=== PATIENT | male | born 1965 | race Caucasian/White ===

== ENCOUNTER 2016-11-03 13:23 | Inpatient (IN) | payer MEDICARE ==
[~2016-11-03] VITALS: Ht 180.3 cm; Wt 85.2 kg
[~2016-11-03 13:23] MED LIST: BENZ1TAB PO; CALTTAB2 PO; DEPA250T2 PO; FISH1000 PO; LANTUSP SQ; MAGNESIUM PO; NOVOLOGP2 SQ; PARO10S PO; PRIN10TA PO; RISP2TAB2 PO; SYNT137T PO; VITA400C28 PO
[2016-11-03 13:24] VITALS: BP 136/84; PULSE 96; RESP 20; TEMP 97.9; O2SAT 94
--- NOTE | 2016-11-03 13:47 | PD ---
Physical Exam Time Seen by Provider: 13:44 Narrative 51yo M, presents w/ mother, who states he had a CT scan this morning and doctor said there is some type of blockage. Minimal bowel movements. Denies fever, vomiting. Patient seen in triage. VS reviewed. Awaiting bed placement. Data Data Last Documented VS Vital Signs Date Time Temp Pulse Resp B/P Pulse Ox O2 Delivery O2 Flow Rate FiO2 11/03/16 13:24 97.9 96 20 136/84 94 Room Air MDM Supervised Visit with CATHI: Zahida Baird Nov 03, 2016 13:47
--- NOTE | 2016-11-03 14:23 | PD ---
HPI Chief Complaint: GI Complaint Time Seen by Provider: 14:00 Travel History International Travel<30 days: No Contact w/Intl Traveler<30days: No Traveled to known affect area: No History of Present Illness HPI This is a 51-year-old male with history of chronic constipation. He presents with his mother after being sent by his gastric urologist for abnormal CT results. Over the past few weeks the patient has been more constipated than usual. His abdomen is seemed more distended according to his mother as well. He had an outpatient CT scan of the abdomen today at [facility]. This was ordered by his solo truck driver Dr. Abad and he was sent here because of an abnormality. I discussed with Dr. Abad he reports that the imaging reveals a possible sigmoid volvulus. He would like a Gastrografin enema to be performed and he would like the patient to be admitted with surgery consultation as well as consultation himself. The patient is currently not experiencing any abdominal pain. He has had no nausea or vomiting, no recent dietary changes. His primary care physician is Dr. Lee. PFSH Past Medical History Cardiovascular Problems: Yes (htn) Cerebrovascular Accident: No (terrets) Diabetes: Yes Patient Takes Glucophage: No Hypertension: Yes Neurologic: Yes (TOURETTES) Social History Alcohol Use: No Tobacco Use: No (QUIT 8 MOS AGO) Substance Use: No Allergies-Medications (Allergen,Severity, Reaction): Coded Allergies: Chocolate (Verified Allergy, Intermediate, eyes swollen, 11/03/16) Sulfa (Verified Allergy, Intermediate, blister, 11/03/16) Reported Meds & Prescriptions Reported Meds & Active Scripts Active Reported Levothyroxine (Levothyroxine Sodium) 137 Mcg Tab 137 Mcg PO DAILY Lisinopril 10 Mg Tab 10 Mg PO DAILY Paxil (Paroxetine HCl) 30 Mg Tab 30 Mg PO DAILY Praluent Pen Inj Pack (Alirocumab Pen Inj Pack) 150 Mg/Ml Pfpen 150 Mg SQ Q14D Novolog Inj (Insulin Aspart) 1,000 Unit/10 Ml Vial 8 Units SQ DAILY Daily with Dinner Novolog Inj (Insulin Aspart) 1,000 Unit/10 Ml Vial 5 Units SQ BID Twice a day with breakfast and lunch Lantus Inj (Insulin Glargine) 100 Unit/Ml Inj 25 Units SQ HS Review of Systems Except as stated in HPI: all other systems reviewed are Neg Physical Exam Narrative GENERAL: Pleasant well-developed well-nourished male in no acute distress SKIN: Warm and dry. HEAD: Atraumatic. Normocephalic. EYES: Pupils equal and round. No scleral icterus. No injection or drainage. ENT: No nasal bleeding or discharge. Mucous membranes pink and moist. NECK: Trachea midline. No JVD. CARDIOVASCULAR: Regular rate and rhythm. No murmur appreciated. RESPIRATORY: No accessory muscle use. Clear to auscultation. Breath sounds equal bilaterally. GASTROINTESTINAL: Abdomen soft, somewhat distended, nontender. Diminished bowel sounds in all 4 quadrants. MUSCULOSKELETAL: No obvious deformities. No clubbing. No cyanosis. No edema. NEUROLOGICAL: Awake and alert. No obvious cranial nerve deficits. Motor grossly within normal limits. Normal speech. PSYCHIATRIC: Appropriate mood and affect; insight and judgment normal. Data Data Last Documented VS Vital Signs Date Time Temp Pulse Resp B/P Pulse Ox O2 Delivery O2 Flow Rate FiO2 11/03/16 13:56 18 11/03/16 13:24 97.9 96 136/84 94 Room Air Orders Complete Blood Count With Diff (11/03/16 14:19) Comprehensive Metabolic Panel (11/03/16 14:19) Lipase (11/03/16 14:19) Prothrombin Time / Inr (Pt) (11/03/16 14:19) Act Partial Throm Time (Ptt) (11/03/16 14:19) Gastrografin Enema (11/03/16 ) Iv Access Insert/Monitor (11/03/16 14:19) Abdomen, Flat & Upright (11/03/16 ) Admit To Inpatient (11/03/16 ) Code Status (11/03/16 15:13) Vital Signs (Adult) Q4H (11/03/16 15:13) Activity Oob With Assistance (11/03/16 15:13) Sodium Chloride 0.9% Flush (Ns Flush) (11/03/16 15:15) Sodium Chloride 0.9% Flush (Ns Flush) (11/03/16 21:00) Acetaminophen (Tylenol) (11/03/16 15:15) Ondansetron Inj (Zofran Inj) (11/03/16 15:15) Temazepam (Restoril) (11/03/16 15:15) Basic Metabolic Panel (Bmp) (11/04/16 06:00) Complete Blood Count With Diff (11/04/16 06:00) Chest, Single Ap (11/03/16 15:13) Electrocardiogram (11/03/16 15:13) Scd Bilateral/Knee High JOSE.BID (11/03/16 15:13) Naloxone Inj (Narcan Inj) (11/03/16 15:15) Magnesium Hydroxide Liq (Milk Of Magnesi (11/03/16 15:15) Inpatient Certification (11/03/16 ) Insulin Aspart Supplemtl Scale (Novolog (11/03/16 16:00) Clonidine (Catapres) (11/03/16 15:15) Enalaprilat Inj (Vasotec Inj) (11/03/16 15:15) Benztropine (Cogentin) (11/03/16 21:00) Lisinopril (Prinivil) (11/04/16 09:00) Divalprovania [address] Dr) (11/03/16 21:00) Admit Order (Ed Use Only) (11/03/16 15:25) Consult Gastroenterology (11/03/16 ) Luca Mich[address] Dr) (11/04/16 09:00) Labs Laboratory Tests Test 11/03/16 14:20 White Blood Count 4.7 TH/MM3 Red Blood Count 4.53 MIL/MM3 Hemoglobin 13.3 GM/DL Hematocrit 40.1 % Mean Corpuscular Volume 88.7 FL Mean Corpuscular Hemoglobin 29.5 PG Mean Corpuscular Hemoglobin 33.2 % Concent Red Cell Distribution Width 13.2 % Platelet Count 139 TH/MM3 Mean Platelet Volume 8.7 FL Neutrophils (%) (Auto) 49.1 % Lymphocytes (%) (Auto) 36.2 % Monocytes (%) (Auto) 10.3 % Eosinophils (%) (Auto) 4.1 % Basophils (%) (Auto) 0.3 % Neutrophils # (Auto) 2.3 TH/MM3 Lymphocytes # (Auto) 1.7 TH/MM3 Monocytes # (Auto) 0.5 TH/MM3 Eosinophils # (Auto) 0.2 TH/MM3 Basophils # (Auto) 0.0 TH/MM3 CBC Comment DIFF FINAL Differential Comment Prothrombin Time 12.0 SEC Prothromb Time International 1.1 RATIO Ratio Activated Partial 33.2 SEC Thromboplast Time Sodium Level 132 MEQ/L Potassium Level 4.1 MEQ/L Chloride Level 98 MEQ/L Carbon Dioxide Level 29.9 MEQ/L Anion Gap 4 MEQ/L Blood Urea Nitrogen 8 MG/DL Creatinine 0.82 MG/DL Estimat Glomerular Filtration 100 ML/MIN Rate Random Glucose 95 MG/DL Calcium Level 8.7 MG/DL Total Bilirubin 0.4 MG/DL Aspartate Amino Transf 20 U/L (AST/SGOT) Alanine Aminotransferase 28 U/L (ALT/SGPT) Alkaline Phosphatase 51 U/L Total Protein 7.4 GM/DL Albumin 3.6 GM/DL Lipase 74 U/L [facility] Medical Decision Making Medical Screen Exam Complete: Yes Emergency Medical Condition: Yes Medical Record Reviewed: Yes Differential Diagnosis Chronic idiopathic constipation, obstruction, fecal impaction, volvulus Narrative Course 51-year-old male with chronic constipation presents after having an outpatient CT of the abdomen and pelvis that revealed possible sigmoid volvulus. I discussed with solo truck driver Dr. Abad who recommends a Gastrografin enema, surgery consultation, consultation to himself, admission. The radiologist has requested a flat and upright x-ray prior to the Gastrografin enema being performed and therefore has been ordered. Initially I discussed with general surgeon Dr. Soto ordered because this is a [facility] patient I then discussed with Dr. Dejesus general surgeon salesperson household appliances for [facility]. He will be communicating with the radiologist and will be consult on the patient. Diagnosis Primary Impression: Volvulus Admitting Information Admitting Physician Requests: Admit Pedro Us Nov 03, 2016 14:23
[2016-11-03] MEDS ORDERED: TEMAZEPAM 15 MG CAP PO PRN (15:15)
[2016-11-03] MEDS ORDERED: SODIUM CHLORIDE 0.9% FLUSH 10 ML FLUSH IV FLUSH PRN (15:15)
[2016-11-03] MEDS ORDERED: NALOXONE HCL 0.4 MG/ML AMP IV PRN (15:15)
[2016-11-03] MEDS ORDERED: MAGNESIUM HYDROXIDE SUSP 30 ML CUP PO PRN (15:15)
[2016-11-03] MEDS ORDERED: ENALAPRILAT 1.25 MG/ML VIAL IV PRN (15:15)
[2016-11-03] MEDS ORDERED: ONDANSETRON HCL 4 MG/2 ML VIAL IVP PRN (15:15)
[2016-11-03] MEDS ORDERED: ACETAMINOPHEN 325 MG TAB PO PRN (15:15)
[2016-11-03] MEDS ORDERED: cloNIDine HCL 0.2 MG TAB PO PRN (15:15)
--- NOTE | 2016-11-03 15:15 | RADRPT ---
EXAM DATE/TIME: 11/03/2016 15:00 [facility] COMPARISON: No previous studies available for comparison. EXTERNAL COMPARISON : [facility] Abdomen and Pelvis November 03, 2016 INDICATIONS : Abnormal bowel movements. MEDICAL HISTORY : None. SURGICAL HISTORY : None. ENCOUNTER: Initial ACUITY: 2 days PAIN SCORE: 0/10 LOCATION: Bilateral abdomen. FINDINGS: CT performed earlier today at [place] [facility] had demonstrated a distended loop of colon in the u pper central abdomen in a configuration suggestive of sigmoid volvulus. On the present KUB, there is a distended loop of bowel in the upper central abdomen measuring up to 14.6 cm; this corresponds to the gas distended sigmoid. There is also gas seen throughout loops of small and large bowel, similar to central office repairer supervisor image from prior CT. No cyst fractures are grossly intact.. CONCLUSION: Persistent dilated loop of colon in the upper abdomen suspicious for sigmoid volvulus. The appearanc e is unchanged from prior central office repairer supervisor image from CT earlier the same day. Jax Mcmahon MD on November 03, 2016 at 15:10 Board Certified Radiologist. This report was verified electronically.
[2016-11-03 15:30] LABS: APTT (PATIENT) 33.2 SEC (24.3-30.1); INTERNATIONAL NORMALIZED RATIO 1.1 RATIO
[2016-11-03 15:31] LABS: AUTOMATED NEUTROPHIL # 2.3 TH/MM3 (1.8-7.7); BASOPHIL % 0.3 % (0.0-2.0); EOSINOPHIL # 0.2 TH/MM3 (0-0.4); EOSINOPHIL % 4.1 % (0.0-4.0); HEMATOCRIT 40.1 % (39.0-51.0); HEMO FLAGS DIFF FINAL; LYMPH % 36.2 % (9.0-44.0); LYMPHOCYTE # 1.7 TH/MM3 (1.0-4.8); MEAN CELL VOLUME 88.7 FL (80.0-100.0); MEAN CORPUSCULAR HEMOGLOBIN 29.5 PG (27.0-34.0); MEAN CORPUSCULAR HGB CONC 33.2 % (32.0-36.0); MONO % 10.3 % (0.0-8.0); NEUT % 49.1 % (16.0-70.0); PLATELET COUNT 139 TH/MM3 (150-450); RED BLOOD COUNT 4.53 MIL/MM3 (4.50-5.90); RED CELL DISTRIBUTION WIDTH 13.2 % (11.6-17.2); WHITE BLOOD COUNT 4.7 TH/MM3 (4.0-11.0)
[2016-11-03 15:39] LABS: ALT (GPT) 28 U/L (12-78); ANION GAP 4 MEQ/L (5-15); AST (GOT) 20 U/L (15-37); BICARBONATE 29.9 MEQ/L (21.0-32.0); BLOOD UREA NITROGEN 8 MG/DL (7-18); CHLORIDE 98 MEQ/L (98-107); GLOMERULAR FILTRATION RATE 100 ML/MIN (>89); POTASSIUM 4.1 MEQ/L (3.5-5.1); SODIUM (NA) 132 MEQ/L (136-145)
[2016-11-03 15:40] LABS: ALKALINE PHOSPHATASE 51 U/L (45-117); TOTAL BILIRUBIN ADULT 0.4 MG/DL (0.2-1.0)
[2016-11-03] MEDS: INSULIN ASPART SUPPLEMENTAL SCALE SQ SCH ×2 (16:00→20:36)
--- NOTE | 2016-11-03 16:02 | HHI.HP ---
HPI Service [facility] Hospitalists Primary Care Physician Albert Lee MD Admission Diagnosis possible volvulus Chief Complaint: Abd bloating and constipation Travel History International Travel<30 Days: No Contact w/Intl Traveler <30 Da: No Traveled to Known Affected Are: No History of Present Illness Mr. Camara is a 51 y/o WM with type 1 diabetes mellitus, HTN, hyperlipidemia, chronic constipation, Schizophrenia, depression/anxiety, developmental delay, and Tourette's syndrome. He was sent to the ED on 11/03/[address] scan which was performed outpt which indicated a possible sigmoid volvulus. Pt has had issues with chronic constipation for quite some time. He was recently treated for SIBO initially with Flagyl and then with erythromycin. Pt had been started on Linzess and takes stool softeners daily, along with either MOM or Miralax daily. His mother states that the Linzess wasn't working well and had followed up in the office to see Dr. Abad and was started on Amitza recently. The pt had not had a BM for several days and was having more abd distension and bloating and was sent for a CT abd/pelvis. This revealed abnormally distended segment of sigmoid colon with a decompressed sigmoid colon and swirling of the adjacent sigmoid mesentery suspicious for some degree of sigmoid volvulus. Pts mother was called with results and instructed to go to the ED for further evaluation. Pt was getting his Gastrografin enema performed when I reported to the ED to see the pt. I spoke with the pts mother to obtain the history and his mother reports that the patient himself if really unable to provide much information. Review of Systems ROS Limitations: Other Past Family Social History Past Medical History Diabetes mellitus, type 1 Diabetic nephropathy HTN Hyperlipidemia GERD Schizophrenia Tourette's syndrome Recurrent major depression Developmental delay Chronic constipation Bacterial overgrowth syndrome Past Surgical History EGD/colonoscopy (11/06/2010) --> gastritis in the body and antrum, poor prep on the colonoscopy small internal hemorrhoids Rectal manometry 04/2016 Reported Medications -Lantus 30 Units SQ HS -Novolog (Insulin Aspart) 100 Units/Ml Inj 14 Units SQ AT DINNER -Novolog (Insulin Aspart) 100 Units/Ml Inj 5 Units SQ AT LUNCH -Novolog (Insulin Aspart) 100 Units/Ml Inj 7 SQ DAILY -Benztropine Mesylate 1 Mg PO BID -Paxil (Paroxetine HCl) 30 Mg PO DAILY -Prinivil 10 Mg PO DAILY -Synthroid 137 mcg PO DAILY --Magnesium 500 Mg PO BID --Depakote Delayed-Release 250 Mg Tabec 750 Mg PO in AM and 500Mg PO in PM --Risperdal 1.5 Mg PO BID Caltrate 600/Vitamin D 400 (Calcium/Vitamin D) 1 Tab Tab 1 Tab PO BID Fish Oil 1,000 Mg Cap 1,200 Mg PO DAILY Vitamin D (Cholecalciferol) 400 Unit Tab 2,000 Iu PO BID Allergies: Coded Allergies: Chocolate (Verified Allergy, Intermediate, eyes swollen, 11/03/16) Sulfa (Verified Allergy, Intermediate, blister, 11/03/16) Family History Noncontributory Social History No reported alcohol or illicit drug use Hx of tobacco use Pt is on disability Lives with his parents Never Pt enjoys bowling recreationally Physical Exam Vital Signs Vital Signs Date Time Temp Pulse Resp B/P Pulse Ox O2 Delivery O2 Flow Rate FiO2 11/03/16 13:56 18 11/03/16 13:24 97.9 96 20 136/84 94 Room Air Physical Exam Not performed at this time. Will re-evaluate when he returns from the Gastrografin enema Laboratory Laboratory Tests Test 11/03/16 14:20 White Blood Count 4.7 Red Blood Count 4.53 Hemoglobin 13.3 Hematocrit 40.1 Mean Corpuscular Volume 88.7 Mean Corpuscular Hemoglobin 29.5 Mean Corpuscular Hemoglobin 33.2 Concent Red Cell Distribution Width 13.2 Platelet Count 139 Mean Platelet Volume 8.7 Neutrophils (%) (Auto) 49.1 Lymphocytes (%) (Auto) 36.2 Monocytes (%) (Auto) 10.3 Eosinophils (%) (Auto) 4.1 Basophils (%) (Auto) 0.3 Neutrophils # (Auto) 2.3 Lymphocytes # (Auto) 1.7 Monocytes # (Auto) 0.5 Eosinophils # (Auto) 0.2 Basophils # (Auto) 0.0 CBC Comment DIFF FINAL Differential Comment Prothrombin Time 12.0 Prothromb Time International 1.1 Ratio Activated Partial 33.2 Thromboplast Time Sodium Level 132 Potassium Level 4.1 Chloride Level 98 Carbon Dioxide Level 29.9 Anion Gap 4 Blood Urea Nitrogen 8 Creatinine 0.82 Estimat Glomerular Filtration 100 Rate Random Glucose 95 Calcium Level 8.7 Total Bilirubin 0.4 Aspartate Amino Transf 20 (AST/SGOT) Alanine Aminotransferase 28 (ALT/SGPT) Alkaline Phosphatase 51 Total Protein 7.4 Albumin 3.6 Lipase 74 Result Diagram: 11/03/16 1420 11/03/16 1420 Imaging Last Impressions Abdomen X-Ray 11/03/16 0000 Signed Impressions: Service Date/Time: Thursday, November 03, 2016 15:00 - CONCLUSION: Persistent dilated loop of colon in the upper abdomen suspicious for sigmoid volvulus. The appearance is unchanged from prior forepart rounder image from CT earlier the same day. Jax Mcmahon MD Assessment and Plan Problem List: (1) Sigmoid volvulus Status: Acute Plan: - Pt is a 51 y/o WM with type 1 diabetes mellitus, HTN, hyperlipidemia, chronic constipation, SIBO, Schizophrenia, depression/anxiety, developmental delay, and Tourette's syndrome. - He was sent to the ED on 11/03/[address] scan which was performed outpt which indicated a possible sigmoid volvulus. - Pt has had issues with chronic constipation for quite some time. He was recently treated for SIBO initially with Flagyl and then with erythromycin. Pthas been on multiple laxative, and most recently has been on a regimen which included stool softeners daily, along with either MOM or Miralax daily, and Amitza which was just started about a week ago. The pt had not had a BM for several days and was having more abd distension and bloating and was sent for a CT abd/pelvis (11/03/16) --> abnormally distended segment of sigmoid colon with a decompressed sigmoid colon and swirling of the adjacent sigmoid mesentery suspicious for some degree of sigmoid volvulus. - Pt is currently being evaluation with Gastrografin enema - GI consulted - General Surgery consulted - Per conversation between Dr. Jimenez and Dr. Dejesus, who reviewed the GE images with surgery, the pt does not appear to be obstructed at this time and may have a slight sigmoid volvulus. - is recommending GI consultation and clean out for colonoscopy. - Pt may or may not need evaluation with CRS depending on how the case progresses. - GI to order prep and timing of colonoscopy per GI, this was discussed with the GI ENGINEERING AGENT, Shima Duff. - IVF - Clear liquid diet - Monitor labs - Further recommendations as the case develops - DVT prophylaxis (2) Chronic constipation Status: Chronic Plan: - See above. (3) Small intestinal bacterial overgrowth Status: Chronic Plan: - See above. (4) Type 1 diabetes mellitus Status: Chronic Plan: - Novolog SSI - Accu checks (5) HTN (hypertension) Status: Chronic Plan: - Home meds resumed (6) Tourette syndrome Status: Chronic Plan: - Home meds resumed (7) Schizophrenia Status: Chronic Plan: - Home meds resumed (8) Depression Status: Chronic Plan: - Home meds resumed Assessment and Plan Patient examined. Assessment and plan formulated with Amanda Leigh PA-C. I agree with the above. Physician Certification 2 Midnight Certification Type: Admission for Inpatient Services Order for Inpatient Services The services are ordered in accordance with Medicare regulations or non- Medicare payer requirements, as applicable. In the case of services not specified as inpatient-only, they are appropriately provided as inpatient services in accordance with the 2-midnight benchmark. Estimated LOS (days): 3 3 days is the estimated time the patient will need to remain in the hospital, assuming treatment plan goals are met and no additional complications. Post-Hospital Plan: Not yet determined Problem Qualifiers (1) Type 1 diabetes mellitus: Qualified Code: E10.8 - Type 1 diabetes mellitus with complication Amanda Leigh Nov 03, 2016 16:02 Mark Jimenez DO Nov 05, 2016 11:06
--- NOTE | 2016-11-03 16:03 | RADRPT ---
EXAM DATE/TIME: 11/03/2016 15:35 [facility] COMPARISON: No previous studies available for comparison. INDICATIONS : Cough. MEDICAL HISTORY : None. SURGICAL HISTORY : None. ENCOUNTER: Initial ACUITY: 1 day PAIN SCORE: 0/10 LOCATION: Bilateral chest FINDINGS: There are patchy areas of infiltrate in the right infrahilar region in the left lower lung without lo ss of delineation of either hemidiaphragm. Some air bronchograms are present in the area of infiltra te. The heart is normal size. CONCLUSION: Bilateral partially consolidative infiltrates in the lower lungs, left greater than right. Jax Mcmahon MD on November 03, 2016 at 16:00 Board Certified Radiologist. This report was verified electronically.
[2016-11-03] MEDS ORDERED: LANTUS2P SQ (16:43)
[2016-11-03] MEDS ORDERED: ALIR1INJ2 SQ (16:43)
[2016-11-03] MEDS ORDERED: PAXI30TA7 PO (16:43)
[2016-11-03] MEDS ORDERED: NOVOLOGP2 SQ ×2 (16:43)
[2016-11-03] MEDS ORDERED: LEVO137T2 PO (16:43)
[2016-11-03] MEDS ORDERED: LISI10TA3 PO (16:43)
[2016-11-03] MEDS ORDERED: GLUCAGON 1 MG/ML VIAL OTHER PRN (16:45)
[2016-11-03] MEDS ORDERED: DEXTROSE 50% IN WATER 50 ML VIAL(D50) IV PUSH PRN (16:45)
[2016-11-03] MEDS ORDERED: DIATRIZOATE MEGLUM/DIATRIZOATE SOD 120 ML BTL (for RAD DIAG) RECTAL ONE (17:00)
[2016-11-03 17:10] VITALS: BP 140/75; PULSE 82; RESP 19; O2SAT 98
--- NOTE | 2016-11-03 17:53 | RADRPT ---
EXAM DATE/TIME: 11/03/2016 16:22 [facility] COMPARISON: No previous studies available for comparison. EXTERNAL COMPARISON : [facility] & W/O CONTRAST November 03, 2016 INDICATIONS : Evaluate for obstruction, abnormal bowel movements. FLUORO TIME: 3.6 minutes IMAGE COUNT: 22 CONTRAST: 1. [facility] MEDICAL HISTORY : None. SURGICAL HISTORY : None. ENCOUNTER: Initial ACUITY: 2 days PAIN SCORE: 0/10 LOCATION: Bilateral abdomen. FINDINGS: Abdominal CT examination from earlier today performed in [facility] was reviewed. This demonstrates distended sigmoid colon with features consistent for sigmoid volvulus. Gastrografin enema exam is shahzad ng performed to evaluate for possible obstruction. Fluoroscopic evaluation confirms a massively dilated sigmoid colon. Under fluoroscopic guidance a Gas trografin enema was performed. Patient was asymptomatic throughout without any abdominal discomfort. Contrast does extend proximally into the descending colon with a relative transition point at the michela ction of the sigmoid and descending colon. One overhead imaging contrast extends to the transverse co mario. Post evacuation radiographs demonstrate contrast into the descending colon. CONCLUSION: Massively dilated sigmoid colon with the apparent transition point at the junction of the descending colon without evidence for obstruction. Findings are consistent with a nonobstructing sigmoid volvulu s. More rare conditions such as idiopathic sigmoid megacolon and unlikely adult Hirschsprung's may bryant ve similar appearance. Findings were personally discussed with Dr. Dejesus. Efrem Parra MD on November 03, 2016 at 17:22 Board Certified Radiologist. This report was verified electronically.
[2016-11-03 18:00] VITALS: BP 134/68; PULSE 81; RESP 12; TEMP 96.8; O2SAT 98
--- NOTE | 2016-11-03 18:01 | PD.CONS ---
HPI History of Present Illness This is a 51 year old male with hx Tourette's, SIBO, IDDM, chronic constipation who was referred to ER by Dr Abad after abnormal CT findings suggestive of sigmoid volvulus. Pt non contributory, hx obtained from EMR, pt's mother. He has had bloating, gas, worsening abd distention for years for which they have sought extensive GI w/u leading to recent CT scan. Also has chronic constipation refractory to bowel regimen including MOM, miralax, stool softeners. Did get some relief with linzess. Amitiza no help. Trial EES and flagyl unsuccessful in relieving distention. In last 2 months pt has had decreased caliber stool. NO complaints of n/v or abd pain. Pt's only complaint of pain is that his "butt hurts" after the gastrografin enema. Last colonoscopy 3y ago and polyps found. Last EGD 3y ago. Hx GERD. PFSH Past Medical History IDDM Tourettes chornic constipation SIBO Past Surgical History none Coded Allergies: Chocolate (Verified Allergy, Intermediate, eyes swollen, 11/03/16) Sulfa (Verified Allergy, Intermediate, blister, 11/03/16) Family History breast cancer heart disease Social History no ETOH or illicit drugs 30 pack years but unclear how much pt smokes currently Review of Systems Constitutional: DENIES: Fever Ears, nose, mouth, throat: DENIES: Hearing loss Respiratory: DENIES: Cough Gastrointestinal: COMPLAINS OF: Constipation, DENIES: Abdominal pain, Black stools, Bloody stools, Diarrhea, Nausea, Vomiting Musculoskeletal: DENIES: Joint Swelling Neurologic: DENIES: Headache GI Exam Vitals I&O Vital Signs Date Time Temp Pulse Resp B/P Pulse Ox O2 Delivery O2 Flow Rate FiO2 11/03/16 17:10 82 19 140/75 98 Room Air 11/03/16 13:56 18 11/03/16 13:24 97.9 96 20 136/84 94 Room Air Imaging Last Impressions Chest X-Ray 11/03/16 1513 Signed Impressions: Service Date/Time: Thursday, November 03, 2016 15:35 - CONCLUSION: Bilateral partially consolidative infiltrates in the lower lungs, left greater than right. Jax Mcmahon MD Abdomen X-Ray 11/03/16 0000 Signed Impressions: Service Date/Time: Thursday, November 03, 2016 15:00 - CONCLUSION: Persistent dilated loop of colon in the upper abdomen suspicious for sigmoid volvulus. The appearance is unchanged from prior tile designer image from CT earlier the same day. Jax Mcmahon MD Laboratory Test 11/03/16 14:20 White Blood Count 4.7 TH/MM3 Red Blood Count 4.53 MIL/MM3 Hemoglobin 13.3 GM/DL Hematocrit 40.1 % Mean Corpuscular Volume 88.7 FL Mean Corpuscular Hemoglobin 29.5 PG Mean Corpuscular Hemoglobin 33.2 % Concent Red Cell Distribution Width 13.2 % Platelet Count 139 TH/MM3 Mean Platelet Volume 8.7 FL Neutrophils (%) (Auto) 49.1 % Lymphocytes (%) (Auto) 36.2 % Monocytes (%) (Auto) 10.3 % Eosinophils (%) (Auto) 4.1 % Basophils (%) (Auto) 0.3 % Neutrophils # (Auto) 2.3 TH/MM3 Lymphocytes # (Auto) 1.7 TH/MM3 Monocytes # (Auto) 0.5 TH/MM3 Eosinophils # (Auto) 0.2 TH/MM3 Basophils # (Auto) 0.0 TH/MM3 CBC Comment DIFF FINAL Differential Comment Prothrombin Time 12.0 SEC Prothromb Time International 1.1 RATIO Ratio Activated Partial 33.2 SEC Thromboplast Time Sodium Level 132 MEQ/L Potassium Level 4.1 MEQ/L Chloride Level 98 MEQ/L Carbon Dioxide Level 29.9 MEQ/L Anion Gap 4 MEQ/L Blood Urea Nitrogen 8 MG/DL Creatinine 0.82 MG/DL Estimat Glomerular Filtration 100 ML/MIN Rate Random Glucose 95 MG/DL Calcium Level 8.7 MG/DL Total Bilirubin 0.4 MG/DL Aspartate Amino Transf 20 U/L (AST/SGOT) Alanine Aminotransferase 28 U/L (ALT/SGPT) Alkaline Phosphatase 51 U/L Total Protein 7.4 GM/DL Albumin 3.6 GM/DL Lipase 74 U/L Physical Examination HEENT: PERRL normocephalic; atraumatic; no jaundice. CHEST: CTA CARDIAC: RRR ABDOMEN: Soft, distended, nontender;, tympanitic, no hepatosplenomegaly; bowel sounds are present in all four quadrants. EXTREMITIES: No clubbing, cyanosis, or edema. SKIN: Normal; no rash; no jaundice. SENIOR DRUPAL DEVELOPER: alert. Assessment and Plan Plan ASSESSMENT - abnormal CT finding - per EMR, suggestive of sigmoid volvulus. hx worsening abd distention, constipation abd xray 11-03-16 --> Persistent dilated loop of colon in the upper abdomen suspicious for sigmoid volvulus. The appearance is unchanged from prior tile designer image from CT earlier the same day. gastrografin enema results pending - Chronic constipation - refractory to MOM, miralax, stool softeners. consider linzess, lactulose - decreased caliber stool - for last few months PLAN - await gastrofrafin enema - consider colonoscopy - clears for now - Further recommendations to follow THis pt seen by myself and DR Garcia and this note is written on his behalf Lilia Duff Nov 03, 2016 18:01
[2016-11-03 20:00] VITALS: BP 142/69; PULSE 79; RESP 20; TEMP 97.7; O2SAT 100
[2016-11-03] MEDS: DIVALPROEX DR 500 MG TABEC PO SCH (20:35)
[2016-11-03] MEDS: SODIUM CHLORIDE 0.9% FLUSH 10 ML FLUSH IV FLUSH SCH (20:36)
[2016-11-03] MEDS ORDERED: MAGNESIUM 200 MG PO SCH (21:00)
[2016-11-03] MEDS ORDERED: [UNRECOGNIZED DRUG - OTHER] PO SCH (21:00)
[2016-11-03] MEDS: BENZTROPINE MESYLATE 1 MG TAB PO SCH (21:46)
[2016-11-04] VITALS: BP 136/70; PULSE 72; RESP 20; TEMP 97.6; O2SAT 98
[2016-11-04] MEDS: LEVOTHYROXINE SODIUM 25 MCG TAB PO SCH (04:34)
[2016-11-04] MEDS: INSULIN ASPART SUPPLEMENTAL SCALE SQ SCH ×4 (04:34→19:45)
[2016-11-04] MEDS: LEVOTHYROXINE SODIUM 112 MCG TAB PO SCH (04:34)
[2016-11-04 05:45] LABS: AUTOMATED NEUTROPHIL # 2.3 TH/MM3 (1.8-7.7); BASOPHIL % 0.4 % (0.0-2.0); EOSINOPHIL # 0.2 TH/MM3 (0-0.4); EOSINOPHIL % 3.8 % (0.0-4.0); HEMATOCRIT 41.1 % (39.0-51.0); HEMO FLAGS DIFF FINAL; LYMPH % 38.6 % (9.0-44.0); MEAN CELL VOLUME 88.4 FL (80.0-100.0); MEAN CORPUSCULAR HEMOGLOBIN 29.4 PG (27.0-34.0); MEAN CORPUSCULAR HGB CONC 33.2 % (32.0-36.0); MONO % 12.4 % (0.0-8.0); NEUT % 44.8 % (16.0-70.0); PLATELET COUNT 139 TH/MM3 (150-450); RED BLOOD COUNT 4.64 MIL/MM3 (4.50-5.90); RED CELL DISTRIBUTION WIDTH 13.3 % (11.6-17.2); WHITE BLOOD COUNT 5.1 TH/MM3 (4.0-11.0)
[2016-11-04 06:03] LABS: BICARBONATE 30.3 MEQ/L (21.0-32.0); POTASSIUM 4.2 MEQ/L (3.5-5.1)
[2016-11-04 08:00] VITALS: BP 121/75; PULSE 63; RESP 12; TEMP 95.2; O2SAT 100
[2016-11-04] MEDS ORDERED: SYNTHROID 137 MCG PO SCH (09:00)
[2016-11-04] MEDS: LISINOPRIL 10 MG TAB PO SCH (09:15)
[2016-11-04] MEDS: DIVALPROEX SODIUM DELAYED RELEASE 250 MG TAB PO SCH (09:16)
[2016-11-04] MEDS: BENZTROPINE MESYLATE 1 MG TAB PO SCH ×2 (09:16→19:39)
[2016-11-04] MEDS: SODIUM CHLORIDE 0.9% FLUSH 10 ML FLUSH IV FLUSH SCH ×2 (09:17→19:39)
--- NOTE | 2016-11-04 09:58 | HHI.GIFU ---
Subjective Remarks Patient is resting in bed, just had a loose BM, denies abd pain, nausea or vomiting. (DonnaIndy LETY) Objective Vitals I&O Vital Signs Date Time Temp Pulse Resp B/P Pulse Ox O2 Delivery O2 Flow Rate FiO2 11/04/16 08:00 95.2 63 12 121/75 100 11/04/16 00:00 97.6 72 20 136/70 98 11/03/16 20:00 97.7 79 20 142/69 100 11/03/16 18:00 96.8 81 12 134/68 98 11/03/16 17:10 82 19 140/75 98 Room Air 11/03/16 13:56 18 11/03/16 13:24 97.9 96 20 136/84 94 Room Air I/O 11/03/16 11/03/16 11/03/16 11/04/16 11/04/16 11/04/16 07:00 15:00 23:00 07:00 15:00 23:00 Intake Total 360 ml 210 ml Balance 360 ml 210 ml Intake Oral 360 ml 210 ml IV Total 0 ml # Voids 1 1 # Bowel Movements 0 Laboratory Laboratory Tests Test 11/03/16 11/04/16 14:20 04:54 White Blood Count 4.7 5.1 Red Blood Count 4.53 4.64 Hemoglobin 13.3 13.6 Hematocrit 40.1 41.1 Mean Corpuscular Volume 88.7 88.4 Mean Corpuscular Hemoglobin 29.5 29.4 Mean Corpuscular Hemoglobin 33.2 33.2 Concent Red Cell Distribution Width 13.2 13.3 Platelet Count 139 139 Mean Platelet Volume 8.7 8.4 Neutrophils (%) (Auto) 49.1 44.8 Lymphocytes (%) (Auto) 36.2 38.6 Monocytes (%) (Auto) 10.3 12.4 Eosinophils (%) (Auto) 4.1 3.8 Basophils (%) (Auto) 0.3 0.4 Neutrophils # (Auto) 2.3 2.3 Lymphocytes # (Auto) 1.7 2.0 Monocytes # (Auto) 0.5 0.6 Eosinophils # (Auto) 0.2 0.2 Basophils # (Auto) 0.0 0.0 CBC Comment DIFF FINAL DIFF FINAL Differential Comment Prothrombin Time 12.0 Prothromb Time International 1.1 Ratio Activated Partial 33.2 Thromboplast Time Sodium Level 132 136 Potassium Level 4.1 4.2 Chloride Level 98 99 Carbon Dioxide Level 29.9 30.3 Anion Gap 4 7 Blood Urea Nitrogen 8 8 Creatinine 0.82 0.90 Estimat Glomerular Filtration 100 90 Rate Random Glucose 95 146 Calcium Level 8.7 8.8 Total Bilirubin 0.4 Aspartate Amino Transf 20 (AST/SGOT) Alanine Aminotransferase 28 (ALT/SGPT) Alkaline Phosphatase 51 Total Protein 7.4 Albumin 3.6 Lipase 74 Imaging Last Impressions Chest X-Ray 11/03/16 1513 Signed Impressions: Service Date/Time: Thursday, November 03, 2016 15:35 - CONCLUSION: Bilateral partially consolidative infiltrates in the lower lungs, left greater than right. Jax Mcmahon MD Enema w/Water Soluble 11/03/16 0000 Signed Impressions: Service Date/Time: Thursday, November 03, 2016 16:22 - CONCLUSION: Massively dilated sigmoid colon with the apparent transition point at the junction of the descending colon without evidence for obstruction. Findings are consistent with a nonobstructing sigmoid volvulus. More rare conditions such as idiopathic sigmoid megacolon and unlikely adult Hirschsprung's may have similar appearance. Findings were personally discussed with Dr. Dejesus. Efrem Parra MD Abdomen X-Ray 11/03/16 0000 Signed Impressions: Service Date/Time: Thursday, November 03, 2016 15:00 - CONCLUSION: Persistent dilated loop of colon in the upper abdomen suspicious for sigmoid volvulus. The appearance is unchanged from prior oval or circular glass cutter image from CT earlier the same day. Jax Mcmahon MD Physical Exam HEENT: normocephalic; atraumatic; no jaundice. CHEST: CTA CARDIAC: RRR ABDOMEN: Soft, distended, nontender; tympanic, no hepatosplenomegaly; bowel sounds are present in all four quadrants. EXTREMITIES: No clubbing, cyanosis, or edema. SKIN: Normal; no rash; no jaundice. SYSTEMS CHECKOUT MECHANIC: alert (Marianaawi,Jacintaawjannet PRINTER'S DEVIL) Assessment and Plan Plan ASSESSMENT - Sigmoid volvulus - Water/enema ( 11/03/16) --->Massively dilated sigmoid colon with the apparent transition point at the junction of the descending colon without evidence for obstruction. Findings are consistent with a nonobstructing sigmoid volvulus. More rare conditions such as idiopathic sigmoid megacolon and unlikely adult Hirschsprung's may have similar appearance. abd xray 11-03-16 --> Persistent dilated loop of colon in the upper abdomen suspicious for sigmoid volvulus. The appearance is unchanged from prior oval or circular glass cutter image from CT earlier the same day. - Chronic constipation - refractory to MOM, miralax, stool softeners. consider linzess, lactulose - decreased caliber stool - for last few months PLAN - Clear liquid diet - Await GS eval. he likely needs surgical intervention - KUB - Consider decompressive colonoscopy - Further recommendations to follow This pt seen by myself and DR Boss and this note is written on her behalf ( Indy Thompson) Physician Comments seen, examined agree with above having multiple bowel movements abdominal [id number] of bowel dilatation colonoscopy on Sunday obtain rectal manometry report from office may consider colectomy if not better (Roopa Boss MD) Indy Thompson Nov 04, 2016 09:58 Roopa Boss MD Nov 04, 2016 15:05
--- NOTE | 2016-11-04 10:48 | RADRPT ---
EXAM DATE/TIME: 11/04/2016 10:30 [facility] COMPARISON: No previous studies available for comparison. INDICATIONS : Abdominal pain and distention. MEDICAL HISTORY : None. SURGICAL HISTORY : None. ENCOUNTER: Initial ACUITY: 2 days PAIN SCORE: 5/10 LOCATION: abdomen FINDINGS: Supine view of the abdomen was performed. The abdominal bowel gas pattern is normal. Gastroview scat tered throughout the colon which is nondilated. No abnormal masses, calcifications, or organomegaly i s seen. The osseous structures are unremarkable. CONCLUSION: Extensive contrast remains throughout the colon. Mc Watkins MD on November 04, 2016 at 10:46 Board Certified Radiologist. This report was verified electronically.
[2016-11-04 12:00] VITALS: BP 128/81; PULSE 89; RESP 16; TEMP 97.2; O2SAT 97
--- NOTE | 2016-11-04 15:17 | HHI.PR ---
Subjective Remarks Pt had multiple large bowel movements. Objective Vitals Vital Signs Date Time Temp Pulse Resp B/P Pulse Ox O2 Delivery O2 Flow Rate FiO2 11/04/16 12:00 97.2 89 16 128/81 97 11/04/16 08:00 95.2 63 12 121/75 100 11/04/16 00:00 97.6 72 20 136/70 98 11/03/16 20:00 97.7 79 20 142/69 100 11/03/16 18:00 96.8 81 12 134/68 98 11/03/16 17:10 82 19 140/75 98 Room Air 11/03/16 11/03/16 11/04/16 15:00 23:00 07:00 Intake Total 360 ml 210 ml Balance 360 ml 210 ml Intake Oral 360 ml 210 ml IV Total 0 ml # Voids 1 1 # Bowel Movements 0 Result Diagram: 11/04/16 0454 11/04/16 0454 Imaging Last Impressions Abdomen X-Ray 11/04/16 0000 Signed Impressions: Service Date/Time: Friday, November 04, 2016 10:30 - CONCLUSION: Extensive contrast remains throughout the colon. Mc Watkins MD Chest X-Ray 11/03/16 1513 Signed Impressions: Service Date/Time: Thursday, November 03, 2016 15:35 - CONCLUSION: Bilateral partially consolidative infiltrates in the lower lungs, left greater than right. Jax Mcmahon MD Enema w/Water Soluble 11/03/16 0000 Signed Impressions: Service Date/Time: Thursday, November 03, 2016 16:22 - CONCLUSION: Massively dilated sigmoid colon with the apparent transition point at the junction of the descending colon without evidence for obstruction. Findings are consistent with a nonobstructing sigmoid volvulus. More rare conditions such as idiopathic sigmoid megacolon and unlikely adult Hirschsprung's may have similar appearance. Findings were personally discussed with Dr. Dejesus. Efrem Parra MD Objective Remarks GENERAL: This is a well-nourished, well-developed patient, in no apparent distress. CARDIOVASCULAR: Regular rate and rhythm without murmurs, gallops, or rubs. RESPIRATORY: Clear to auscultation. Breath sounds equal bilaterally. No wheezes , rales, or rhonchi. GASTROINTESTINAL: Abdomen soft, non-tender, nondistended. Normal active bowel sounds MUSCULOSKELETAL: Extremities without clubbing, cyanosis, or edema. NEURO: Alert & Oriented x4 to person, place, time, situation. Moves all ext x4 A/P Problem List: (1) Sigmoid volvulus Status: Acute Plan: - comgmt with GI - Pt is a 51 y/o WM with type 1 diabetes mellitus, HTN, hyperlipidemia, chronic constipation, SIBO, Schizophrenia, depression/anxiety, developmental delay, and Tourette's syndrome. - He was sent to the ED on 11/03/[address] scan which was performed outpt which indicated a possible sigmoid volvulus. - Pt has had issues with chronic constipation for quite some time. He was recently treated for SIBO initially with Flagyl and then with erythromycin. Pthas been on multiple laxative, and most recently has been on a regimen which included stool softeners daily, along with either MOM or Miralax daily, and Amitza which was just started about a week ago. The pt had not had a BM for several days and was having more abd distension and bloating and was sent for a CT abd/pelvis (11/03/16) --> abnormally distended segment of sigmoid colon with a decompressed sigmoid colon and swirling of the adjacent sigmoid mesentery suspicious for some degree of sigmoid volvulus. - Case d/w Dr. Dejesus (), the pt does not appear to be obstructed at this time and may have a slight sigmoid volvulus. Pt may require evaluation by Colorectal Surgery and possible colectomy. - Case d/w Dr. Boss (11/04/16) - Colonoscopy on Sunday (11/06/16) - Clear liquid diet - DVT prophylaxis (2) Chronic constipation Status: Chronic Plan: - See above. (3) Small intestinal bacterial overgrowth Status: Chronic Plan: - See above. (4) Type 1 diabetes mellitus Status: Chronic Plan: - Novolog SSI - Accu checks (5) HTN (hypertension) Status: Chronic Plan: - Home meds resumed (6) Tourette syndrome Status: Chronic Plan: - Home meds resumed (7) Schizophrenia Status: Chronic Plan: - Home meds resumed (8) Depression Status: Chronic Plan: - Home meds resumed Problem Qualifiers (1) Type 1 diabetes mellitus: Qualified Code: E10.8 - Type 1 diabetes mellitus with complication Mark Jimenez DO Nov 04, 2016 15:17
[2016-11-04] MEDS ORDERED: PILL SPLITTER OTHER PRN (15:30)
[2016-11-04 16:00] VITALS: BP 136/73; PULSE 74; RESP 15; TEMP 96.6; O2SAT 99
--- NOTE | 2016-11-04 16:33 | EKG ---
Date Performed: 11/03/2016 Time Performed: 17:03:21 PTAGE: 51 years EKG: Sinus rhythm NORMAL ECG NO PREVIOUS TRACING DOCTOR: Arnold Briseno Interpretating Date/Time 11/04/2016 16:32:18
[2016-11-04] MEDS: DIVALPROEX DR 500 MG TABEC PO SCH (19:39)
[2016-11-04] MEDS: PARoxetine HCL 20 MG TAB PO SCH (19:39)
[2016-11-04 20:00] VITALS: BP 124/66; PULSE 69; RESP 18; TEMP 96.3; O2SAT 97
[2016-11-05] VITALS: BP 103/58; PULSE 73; RESP 18; TEMP 96.9; O2SAT 97
[2016-11-05] MEDS: LEVOTHYROXINE SODIUM 25 MCG TAB PO SCH (05:38)
[2016-11-05] MEDS: LEVOTHYROXINE SODIUM 112 MCG TAB PO SCH (05:38)
[2016-11-05] MEDS: INSULIN ASPART SUPPLEMENTAL SCALE SQ SCH ×4 (06:26→20:43)
[2016-11-05 08:00] VITALS: BP 115/63; PULSE 71; RESP 17; TEMP 96.6; O2SAT 100
[2016-11-05] MEDS: DIVALPROEX SODIUM DELAYED RELEASE 250 MG TAB PO SCH (09:34)
[2016-11-05] MEDS: SODIUM CHLORIDE 0.9% FLUSH 10 ML FLUSH IV FLUSH SCH ×2 (09:35→20:38)
[2016-11-05] MEDS: LISINOPRIL 10 MG TAB PO SCH (09:35)
[2016-11-05] MEDS: BENZTROPINE MESYLATE 1 MG TAB PO SCH ×2 (09:35→20:38)
[2016-11-05 12:00] VITALS: BP 118/63; PULSE 72; RESP 17; TEMP 95.7; O2SAT 96
[2016-11-05 16:00] VITALS: BP_SYST 123; BP_SYST 169; BP_DIAS 64; BP_DIAS 79; PULSE 100; PULSE 67; RESP 17; RESP 19; TEMP 97.4; TEMP 99.2; O2SAT 96; O2SAT 98
--- NOTE | 2016-11-05 16:12 | HHI.PR ---
Subjective Remarks multiple BMs since admission. 5 BMs recorded for today. No new complaints. Objective Vitals Vital Signs Date Time Temp Pulse Resp B/P Pulse Ox O2 Delivery O2 Flow Rate FiO2 11/05/16 12:00 95.7 72 17 118/63 96 11/05/16 08:00 96.6 71 17 115/63 100 11/05/16 00:00 96.9 73 18 103/58 97 11/04/16 20:00 96.3 69 18 124/66 97 11/04/16 11/04/16 11/05/16 15:00 23:00 07:00 Intake Total 360 ml 320 ml 240 ml Balance 360 ml 320 ml 240 ml Intake Oral 360 ml 320 ml 240 ml # Voids 5 2 2 # Bowel Movements 4 4 0 Result Diagram: 11/04/16 0454 11/04/16 0454 Imaging Last Impressions Abdomen X-Ray 11/04/16 0000 Signed Impressions: Service Date/Time: Friday, November 04, 2016 10:30 - CONCLUSION: Extensive contrast remains throughout the colon. Mc Watkins MD Chest X-Ray 11/03/16 1513 Signed Impressions: Service Date/Time: Thursday, November 03, 2016 15:35 - CONCLUSION: Bilateral partially consolidative infiltrates in the lower lungs, left greater than right. Jax Mcmahon MD Enema w/Water Soluble 11/03/16 0000 Signed Impressions: Service Date/Time: Thursday, November 03, 2016 16:22 - CONCLUSION: Massively dilated sigmoid colon with the apparent transition point at the junction of the descending colon without evidence for obstruction. Findings are consistent with a nonobstructing sigmoid volvulus. More rare conditions such as idiopathic sigmoid megacolon and unlikely adult Hirschsprung's may have similar appearance. Findings were personally discussed with Dr. Dejesus. Efrem Parra MD Objective Remarks GENERAL: This is a well-nourished, well-developed patient, in no apparent distress. CARDIOVASCULAR: Regular rate and rhythm without murmurs, gallops, or rubs. RESPIRATORY: Clear to auscultation. Breath sounds equal bilaterally. No wheezes , rales, or rhonchi. GASTROINTESTINAL: Abdomen soft, non-tender, nondistended. Normal active bowel sounds MUSCULOSKELETAL: Extremities without clubbing, cyanosis, or edema. NEURO: Alert & Oriented x4 to person, place, time, situation. Moves all ext x4 A/P Problem List: (1) Sigmoid volvulus Status: Acute Plan: - comgmt with GI - Pt is a 51 y/o WM with type 1 diabetes mellitus, HTN, hyperlipidemia, chronic constipation, SIBO, Schizophrenia, depression/anxiety, developmental delay, and Tourette's syndrome. - He was sent to the ED on 11/03/[address] scan which was performed outpt which indicated a possible sigmoid volvulus. - Pt has had issues with chronic constipation for quite some time. He was recently treated for SIBO initially with Flagyl and then with erythromycin. Pt has been on multiple laxative, and most recently has been on a regimen which included stool softeners daily, along with either MOM or Miralax daily, and Amitza which was just started about a week ago. The pt had not had a BM for several days and was having more abd distension and bloating and was sent for a CT abd/pelvis (11/03/16) --> abnormally distended segment of sigmoid colon with a decompressed sigmoid colon and swirling of the adjacent sigmoid mesentery suspicious for some degree of sigmoid volvulus. - Case d/w Dr. Dejseus (), the pt does not appear to be obstructed at this time and may have a slight sigmoid volvulus. - Pt may require evaluation by Colorectal Surgery and possible colectomy. - Case d/w Dr. Boss (11/04/16) - Colonoscopy on Sunday (11/06/16) - Clear liquid diet - DVT prophylaxis 11/05/16 - Pt interviewed and examined - Pt to receive Golytely this evening - Case d/w pt's mother at the bedside - continue current treatment plan as outlined above. (2) Chronic constipation Status: Chronic Plan: - See above. (3) Small intestinal bacterial overgrowth Status: Chronic Plan: - See above. (4) Type 1 diabetes mellitus Status: Chronic Plan: - Novolog SSI - Accu checks (5) HTN (hypertension) Status: Chronic Plan: - Home meds resumed (6) Tourette syndrome Status: Chronic Plan: - Home meds resumed (7) Schizophrenia Status: Chronic Plan: - Home meds resumed (8) Depression Status: Chronic Plan: - Home meds resumed Problem Qualifiers (1) Type 1 diabetes mellitus: Qualified Code: E10.8 - Type 1 diabetes mellitus with complication Mark Jimenez DO Nov 05, 2016 16:12
[2016-11-05] MEDS ORDERED: PEG (High)/E-LYTE SOLN 4000 ML BTL PO ONE (16:15)
--- NOTE | 2016-11-05 17:05 | HHI.GIFU ---
GI Follow-up Note Consult Follow-up Subjective: Patient laying in bed comfortably, had 5 bm's today.No nausea, vomiting , preparing for colonoscopy Objective: PHYSICAL EXAMINATION: Vitals signs stable No fever Vital Signs Date Time Temp Pulse Resp B/P Pulse Ox O2 Delivery O2 Flow Rate FiO2 11/05/16 16:00 97.4 67 17 123/64 98 11/05/16 12:00 95.7 72 17 118/63 96 HEENT: Pupils round and reactive to light; normocephalic; atraumatic; no jaundice. Throat is clear. NECK: Neck is supple, no JVD, no lymphadenopathy. CHEST: Chest is clear to auscultation and percussion. CARDIAC: Regular rate and rhythm with no murmur gallop or rubs. ABDOMEN: Soft, distended, nontender; no hepatosplenomegaly; bowel sounds are present in all four quadrants. EXTREMITIES: No clubbing, cyanosis, or edema. SKIN: Normal; no rash; no jaundice. HIGH SCHOOL COUNSELOR: No focal deficits; alert and oriented times three. Available Data (labs, X- Rays, Procedues) : Laboratory Tests Test 11/04/16 04:54 White Blood Count 5.1 TH/MM3 Red Blood Count 4.64 MIL/MM3 Hemoglobin 13.6 GM/DL Hematocrit 41.1 % Mean Corpuscular Volume 88.4 FL Mean Corpuscular Hemoglobin 29.4 PG Mean Corpuscular Hemoglobin 33.2 % Concent Red Cell Distribution Width 13.3 % Platelet Count 139 TH/MM3 Mean Platelet Volume 8.4 FL Neutrophils (%) (Auto) 44.8 % Lymphocytes (%) (Auto) 38.6 % Monocytes (%) (Auto) 12.4 % Eosinophils (%) (Auto) 3.8 % Basophils (%) (Auto) 0.4 % Neutrophils # (Auto) 2.3 TH/MM3 Lymphocytes # (Auto) 2.0 TH/MM3 Monocytes # (Auto) 0.6 TH/MM3 Eosinophils # (Auto) 0.2 TH/MM3 Basophils # (Auto) 0.0 TH/MM3 CBC Comment DIFF FINAL Differential Comment Sodium Level 136 MEQ/L Potassium Level 4.2 MEQ/L Chloride Level 99 MEQ/L Carbon Dioxide Level 30.3 MEQ/L Anion Gap 7 MEQ/L Blood Urea Nitrogen 8 MG/DL Creatinine 0.90 MG/DL Estimat Glomerular Filtration 90 ML/MIN Rate Random Glucose 146 MG/DL Calcium Level 8.8 MG/DL ASSESSMENT/PLAN: chronic constipation-possible colonic dysmotility sigmoid volvulus-resolved after Gastrografin enema Recommendations clear liquid diet npo aftermidnight colonoscopy in am sitz marker study op if not done yet if recurrent episodes may consider total vs partial colectomy discussed with dr Dejesus and mom It was a pleasure seeing Keven Camara. Thank you for this consult. Entered by: Roopa Thompson MD Nov 05, 2016 17:05
[2016-11-05 20:00] VITALS: BP 127/75; PULSE 80; RESP 18; TEMP 96.2; O2SAT 100
[2016-11-05] MEDS: PARoxetine HCL 20 MG TAB PO SCH (20:38)
[2016-11-05] MEDS: DIVALPROEX DR 500 MG TABEC PO SCH (20:38)
[2016-11-06] VITALS: BP 118/65; PULSE 61; RESP 18; TEMP 97; O2SAT 98
[2016-11-06 04:00] VITALS: BP 120/64; PULSE 70; RESP 18; TEMP 97.4; O2SAT 96
[2016-11-06] MEDS: LEVOTHYROXINE SODIUM 25 MCG TAB PO SCH (06:18)
[2016-11-06] MEDS: LEVOTHYROXINE SODIUM 112 MCG TAB PO SCH (06:18)
[2016-11-06] MEDS: INSULIN ASPART SUPPLEMENTAL SCALE SQ SCH ×4 (06:22→17:22)
[2016-11-06 08:00] VITALS: BP 115/58; PULSE 68; RESP 16; TEMP 97.1; O2SAT 96
[2016-11-06] MEDS: SODIUM CHLORIDE 0.9% FLUSH 10 ML FLUSH IV FLUSH SCH (08:39)
[2016-11-06] MEDS: LISINOPRIL 10 MG TAB PO SCH (08:39)
[2016-11-06] MEDS: DIVALPROEX SODIUM DELAYED RELEASE 250 MG TAB PO SCH (08:39)
[2016-11-06] MEDS: BENZTROPINE MESYLATE 1 MG TAB PO SCH (08:39)
--- NOTE | 2016-11-06 12:19 | HHI.GIFU ---
Subjective Remarks Immediate postop note: Colonoscopy Indication: constipation, possible chronic volvulus Meds: MAC Findings: Cecum: normal, ascending, loops difficult to reach cecum Adult scope substituted, cecum reached. otherwise normal colon. Rectum normal Objective Vitals I&O Vital Signs Date Time Temp Pulse Resp B/P Pulse Ox O2 Delivery O2 Flow Rate FiO2 11/06/16 08:00 97.1 68 16 115/58 96 11/06/16 04:00 97.4 70 18 120/64 96 11/06/16 00:00 97.0 61 18 118/65 98 11/05/16 20:00 96.2 80 18 127/75 100 11/05/16 16:00 97.4 67 17 123/64 98 I/O 11/05/16 11/05/16 11/05/16 11/06/16 11/06/16 11/06/16 07:00 15:00 23:00 07:00 15:00 23:00 Intake Total 240 ml 856 ml 480 ml 0 ml Balance 240 ml 856 ml 480 ml 0 ml Intake Oral 240 ml 856 ml 480 ml 0 ml # Voids 2 4 2 3 # Bowel Movements 0 5 3 1 Physical Exam HEENT: normocephalic; atraumatic; no jaundice. CHEST: CTA CARDIAC: RRR ABDOMEN: Soft, distended, nontender; tympanic, no hepatosplenomegaly; bowel sounds are present in all four quadrants. EXTREMITIES: No clubbing, cyanosis, or edema. SKIN: Normal; no rash; no jaundice. COSMETIC COUNSELOR: alert Assessment and Plan Plan ASSESSMENT - Sigmoid volvulus - Water/enema ( 11/03/16) --->Massively dilated sigmoid colon with the apparent transition point at the junction of the descending colon without evidence for obstruction. Findings are consistent with a nonobstructing sigmoid volvulus. More rare conditions such as idiopathic sigmoid megacolon and unlikely adult Hirschsprung's may have similar appearance. abd xray 11-03-16 --> Persistent dilated loop of colon in the upper abdomen suspicious for sigmoid volvulus. The appearance is unchanged from prior remote sensing analyst image from CT earlier the same day. - Chronic constipation - refractory to MOM, miralax, stool softeners. consider linzess, lactulose - decreased caliber stool - for last few months PLAN - Await GS eval. he likely needs surgical intervention - KUB - Colonoscopy performed 11/06 Normal, except for tortuous right colon. Left colon appears normal. used adult colonoscope. - Resume normal diet. - Ok to discharge home. Campbell Garcia MD Nov 06, 2016 12:19
[2016-11-06 12:45] VITALS: BP 130/67; PULSE 65; RESP 16; TEMP 97.2; O2SAT 97
--- NOTE | 2016-11-06 12:49 | HHI.PR ---
Subjective Remarks Pt had colonoscopy today which revealed tortuous right colon, left colon appears normal but GI is recommending surgical evaluation as pt may need surgical intervention related to the sigmoid volvulus Objective Vitals Vital Signs Date Time Temp Pulse Resp B/P Pulse Ox O2 Delivery O2 Flow Rate FiO2 11/06/16 08:00 97.1 68 16 115/58 96 11/06/16 04:00 97.4 70 18 120/64 96 11/06/16 00:00 97.0 61 18 118/65 98 11/05/16 20:00 96.2 80 18 127/75 100 11/05/16 16:00 97.4 67 17 123/64 98 11/05/16 11/05/16 11/06/16 15:00 23:00 07:00 Intake Total 856 ml 480 ml 0 ml Balance 856 ml 480 ml 0 ml Intake Oral 856 ml 480 ml 0 ml # Voids 4 2 3 # Bowel Movements 5 3 1 Result Diagram: 11/04/16 0454 11/04/16 0454 Imaging Last Impressions Abdomen X-Ray 11/04/16 0000 Signed Impressions: Service Date/Time: Friday, November 04, 2016 10:30 - CONCLUSION: Extensive contrast remains throughout the colon. Mc Watkins MD Chest X-Ray 11/03/16 1513 Signed Impressions: Service Date/Time: Thursday, November 03, 2016 15:35 - CONCLUSION: Bilateral partially consolidative infiltrates in the lower lungs, left greater than right. Jax Mcmahon MD Enema w/Water Soluble 11/03/16 0000 Signed Impressions: Service Date/Time: Thursday, November 03, 2016 16:22 - CONCLUSION: Massively dilated sigmoid colon with the apparent transition point at the junction of the descending colon without evidence for obstruction. Findings are consistent with a nonobstructing sigmoid volvulus. More rare conditions such as idiopathic sigmoid megacolon and unlikely adult Hirschsprung's may have similar appearance. Findings were personally discussed with Dr. Dejesus. Efrem Parra MD Objective Remarks General: NAD Chest: CTA Cardiac: Regular Abd: +BS, soft ND/NT Ext: No edema A/P Problem List: (1) Sigmoid volvulus Status: Acute Plan: - comgmt with GI - Pt is a 51 y/o WM with type 1 diabetes mellitus, HTN, hyperlipidemia, chronic constipation, SIBO, Schizophrenia, depression/anxiety, developmental delay, and Tourette's syndrome. - He was sent to the ED on 11/03/[address] scan which was performed outpt which indicated a possible sigmoid volvulus. - Pt has had issues with chronic constipation for quite some time. He was recently treated for SIBO initially with Flagyl and then with erythromycin. Pt has been on multiple laxative, and most recently has been on a regimen which included stool softeners daily, along with either MOM or Miralax daily, and Amitza which was just started about a week ago. The pt had not had a BM for several days and was having more abd distension and bloating and was sent for a CT abd/pelvis (11/03/16) --> abnormally distended segment of sigmoid colon with a decompressed sigmoid colon and swirling of the adjacent sigmoid mesentery suspicious for some degree of sigmoid volvulus. - Water Soluble Enema (11/03/16) --> Massively dilated sigmoid colon with the apparent transition point at the junction of the descending colon without evidence for obstruction. Findings are consistent with a nonobstructing sigmoid volvulus. Findings were personally discussed with Dr. Dejesus. - Case discussed between Dr. Jimenez and Dr. Dejesus (), the pt does not appear to be obstructed at that time but he felt that the pt may require evaluation by Colorectal Surgery and possible colectomy. - Pt underwent evaluation with colonoscopy on 11/06/16 --> tortuous right colon, left colon appears normal - GI is recommending surgical evaluation as pt may need surgical intervention related to the sigmoid volvulus - We will consult CRS for further recommendations. (2) Chronic constipation Status: Chronic Plan: - See above. (3) Small intestinal bacterial overgrowth Status: Chronic Plan: - See above. (4) Type 1 diabetes mellitus Status: Chronic Plan: - Novolog SSI - Accu checks (5) HTN (hypertension) Status: Chronic Plan: - Home meds resumed (6) Tourette syndrome Status: Chronic Plan: - Home meds resumed (7) Schizophrenia Status: Chronic Plan: - Home meds resumed (8) Depression Status: Chronic Plan: - Home meds resumed Assessment and Plan Patient examined. Assessment and plan formulated with Amanda Leigh PA-C. I agree with the above. bowel regimen recommended per GI CRS consultation as pt may need resection at some point. Problem Qualifiers (1) Type 1 diabetes mellitus: Qualified Code: E10.8 - Type 1 diabetes mellitus with complication Amanda Leigh Nov 06, 2016 12:49 Dawood Snow MD Nov 06, 2016 16:40
[2016-11-06] MEDS ORDERED: PROPOFOL 200 MG/20 ML AMP IV ONE (13:08)
--- NOTE | 2016-11-06 13:28 | MR ---
cc: ALBERT CRUZ M.D., EDWARD B. DO SULLIVAN, HAROLD H. MD DATE OF PROCEDURE 11/06/2016 PROCEDURE Colonoscopy. INDICATION Constipation. Possible chronic volvulus. REFERRING PHYSICIAN Dr. Jimenez PROCEDURE After informed consent was obtained, the patient was placed in the left side down position. He was sedated by the anesthesia service. After adequate sedation was achieved the Pentax pediatric video colonoscope was inserted in the anal canal, advanced to the colon reaching the ascending colon. It could not be advanced further in spite of turned the patient onto his right side and then turning him back on his left side and abdominal pressure. The scope was then slowly withdrawn examining the mucosal surfaces carefully. A retroflex exam was performed in the rectum. The scope was then straightened and pulled through the anal canal and a larger colonoscope was then substituted. The scope was entered into the rectum and advanced through the colon reaching the ascending colon. Then with some abdominal pressure, the scope could be manipulated into the cecum. It was then slowly withdrawn examining the mucosal surfaces carefully. No polypoid lesions were identified. The scope was withdrawn out through the rectum and the procedure was terminated. He tolerated the procedure well and was returned to the recovery area in good condition. FINDINGS 1. The cecum was normal and the ascending colon contained some difficult loops to negotiate. 2. The adult scope was required in order to reach the cecum. 3. Otherwise the colon was normal including the splenic flexure and the descending colon-sigmoid colon junction. 4. No polyps were seen. 5. The rectum was normal. IMPRESSION 1. Normal colonoscopy. 2. Chronic constipation. 3. No evidence of chronic sigmoid volvulus seen. RECOMMENDATIONS 1. Regular diet. 2. The patient should be stable for discharge today. 3. I do not believe surgical intervention would be indicated. 4. The patient's mother was instructed he should take MiraLax one dose in the morning and one dose in the evening along with one dose heaping tablespoon of Metamucil and then in the evening he can take one to two Dulcolax tablets as needed to move his bowels on a daily or every other day basis. Campbell Garcia MD [facility] /12:36 PM /1:21 PM
[2016-11-06 16:00] VITALS: BP 142/67; PULSE 77; RESP 16; TEMP 98.1; O2SAT 98
--- NOTE | 2016-11-06 16:34 | MB ---
cc: BENJY WEAVER M.D. DATE OF CONSULTATION 11/06/2016 CHIEF COMPLAINT Constipation and possible volvulus. PRESENT ILLNESS The patient is a 51-year-old white male with history of type 1 diabetes, hypertension, schizophrenia, depression / anxiety, a developmental delay, Tourette's syndrome and chronic constipation. He has constipated for many, many years per his mother and has been followed by Dr. Abad for quite some time. Most recently he has been having more and more troubles. He was treated for bacterial overgrowth with Flagyl and erythromycin and had been tried on Linzess without much help. He was then tried on Amitiza but has not taken this long enough to make any determination whether it will be effective for him. CT scan performed as an outpatient indicated possible sigmoid volvulus and he was brought to the hospital on November 03, 2016. Gastrografin enema at that time showed a massively dilated sigmoid colon consistent with a possible volvulus. He was then seen by Dr. Garcia who is following him for Dr. Abad and underwent colonoscopy. I spoke with Dr. Garcia and he felt that his colonoscopy was not consistent with any kind of a chronic sigmoid volvulus. I have been asked to see him regarding this. PAST MEDICAL HISTORY 1. Diabetes mellitus type 2. 2. Hypertension. 3. Gastroesophageal reflux disease. 4. Schizophrenia. 5. Tourette's syndrome. 6. Major depression 7. Developmental delay. 8. Chronic constipation. 9. Bacterial overgrowth syndrome. PAST SURGICAL HISTORY EGD / colonoscopy at this admission. ALLERGIES 1. CHOCOLATE. 2. SULFA. MEDICATIONS Please see medical record for history. SOCIAL HISTORY The patient is on disability. He denies alcohol but does have a history of tobacco use. He lives with his parents. PHYSICAL EXAMINATION GENERAL: Physical exam reveals alert male who appears comfortable. NEUROLOGIC: Patient is appropriate but seems a little slow in his responses and lets his mother answer most of the questions for him. SKIN: Warm and dry. HEENT: Head is normocephalic, atraumatic. CARDIOVASCULAR: Regular rate. CHEST: Breathing is symmetric, bilaterally and nonlabored. ABDOMEN: Soft, nondistended. He is mildly distended. He does have a diastasis recti. There is no guarding or rebound or masses palpable. EXTREMITIES: Reveal no edema. LABORATORY DATA There is no current laboratory work. IMAGING As stated previously. IMPRESSION Severe chronic constipation with possible new onset volvulus. PLAN Currently he has no sign of chronic volvulus but certainly this could of been his first episode. However, I would agree with Dr. Garcia that a trial of nonoperative management is appropriate if we can get his constipation under control it is unlikely that he will go on to need a sigmoid resection. However, if he begins having more definitive or more frequent episodes of volvulus, surgical resection is something we can consider in the future. I have discussed this case with Dr. Garcia and the patient will follow up Dr. Garcia and Dr. Garcia will send him to me if he feels it is necessary. Thank you very much for your kind referral. MD ZACHERY Holden/FABIO /3:52 PM /4:15 PM
[2016-11-06] MEDS ORDERED: DEPA500T PO (17:25)
[2016-11-06] MEDS ORDERED: BENZ0.5T PO (17:25)
--- NOTE | 2016-11-06 17:27 | HHI.DCPOC ---
Discharge Care Plan Diagnosis: (1) Chronic constipation Goals to Promote Your Health * To prevent worsening of your condition and complications * To maintain your health at the optimal level Directions to Meet Your Goals Take your medications as prescribed Follow your dietary instruction Follow activity as directed Keep your appointments as scheduled Take your immunizations and boosters as scheduled If your symptoms worsen call your PCP, if no PCP go to Urgent Care Center or Emergency Room Smoking is Dangerous to Your Health. Avoid second hand smoke Call the 24-hour hour crisis hotline for domestic abuse at Dawood Snow MD Nov 06, 2016 17:27
== END 2016-11-06 18:12 | disposition home or self-care (01) | DRG 389 ==
LOC: NEPC 13:23 → NEDA 15:27 → N07A 17:35
PROVIDERS: ADMIT Hospitalist; ATTEND Hospitalist
PROC: 0DJD8ZZ Inspection of Lower Intestinal Tract, Via Natural or Artificial Opening Endoscopic (ICD-10-PCS; principal; 2016-11-06 11:23)
DX: K56.2 Volvulus (principal); F33.9 Major depressive disorder, recurrent, unspecified; E10.21 Type 1 diabetes mellitus with diabetic nephropathy; I10 Essential (primary) hypertension; F95.2 Tourette's disorder; F20.9 Schizophrenia, unspecified; K21.9 Gastro-esophageal reflux disease without esophagitis; K59.8 Other specified functional intestinal disorders; R62.50 Unspecified lack of expected normal physiological development in childhood; E78.5 Hyperlipidemia, unspecified; F41.9 Anxiety disorder, unspecified; F17.200 Nicotine dependence, unspecified, uncomplicated; Z79.4 Long term (current) use of insulin; Z86.73 Personal history of transient ischemic attack (TIA), and cerebral infarction without residual deficits; Z88.2 Allergy status to sulfonamides
CPT/HCPCS: 71010; 74000; 74020; 74270; 80048; 80053; 82948; 83690; 85025; 85610; 85730; 93005; J1815; Q9963

== ENCOUNTER → 2017-01-26 | Outpatient (CLI) | payer MEDICARE ==
[~2017-01-26] MED LIST changes: +ALIR1INJ2 SQ; +AMIT8CAP6 PO; +BENZ0.5T PO; -BENZ1TAB PO; -CALTTAB2 PO; -DEPA250T2 PO; +DEPA500T PO; +DEPA500T3 PO; +DIVA250ER PO; -FISH1000 PO; +HYDR-3516 PO; +LANTUS2P SQ; -LANTUSP SQ; +LEVO137T2 PO; +LISI10TA3 PO; -MAGNESIUM PO; +META48.53 PO; -PARO10S PO; +PAXI30TA7 PO; +POLY17PO3 PO; -PRIN10TA PO; +RISP1 PO; -RISP2TAB2 PO; -SYNT137T PO; -VITA400C28 PO
[2017-01-26 10:41] LABS: AUTOMATED NEUTROPHIL # 2.3 TH/MM3 (1.8-7.7); BASOPHIL % 0.4 % (0.0-2.0); EOSINOPHIL # 0.3 TH/MM3 (0-0.4); EOSINOPHIL % 5.9 % (0.0-4.0); HEMATOCRIT 39.9 % (39.0-51.0); HEMO FLAGS DIFF FINAL; LYMPH % 35.4 % (9.0-44.0); LYMPHOCYTE # 1.7 TH/MM3 (1.0-4.8); MEAN CELL VOLUME 87.6 FL (80.0-100.0); MEAN CORPUSCULAR HEMOGLOBIN 29.9 PG (27.0-34.0); MEAN CORPUSCULAR HGB CONC 34.2 % (32.0-36.0); MONO % 10.7 % (0.0-8.0); NEUT % 47.6 % (16.0-70.0); PLATELET COUNT 155 TH/MM3 (150-450); RED BLOOD COUNT 4.55 MIL/MM3 (4.50-5.90); RED CELL DISTRIBUTION WIDTH 12.7 % (11.6-17.2); WHITE BLOOD COUNT 4.8 TH/MM3 (4.0-11.0)
[2017-01-26 10:47] LABS: APTT (PATIENT) 32.9 SEC (24.3-30.1); INTERNATIONAL NORMALIZED RATIO 1.1 RATIO; PROTHROMBIN TIME - PATIENT 12.1 SEC (9.8-11.6)
[2017-01-26 10:58] LABS: BLOOD, URINE NEG (NEG); COMMENT (UR) CULT NOT INDICATED; CULTURE IF INDICATED CULT NOT INDICATED; GLUCOSE,URINE NEG (NEG); KETONE, URINE TRACE mg/dL (NEG); MUCUS URINE FEW /lpf (OCC); NITRITE,URINE NEG (NEG); PH, URINE 7.5 (5.0-8.5); URINE COLOR LIGHT-YELLOW (YELLW/STRAW)
[2017-01-26 11:17] LABS: ANION GAP 2 MEQ/L (5-15); AST (GOT) 15 U/L (15-37); BICARBONATE 31.7 MEQ/L (21.0-32.0); BLOOD UREA NITROGEN 8 MG/DL (7-18); CHLORIDE 97 MEQ/L (98-107); GLOMERULAR FILTRATION RATE 96 ML/MIN (>89); GLUCOSE,FASTING 121 MG/DL (74-99); POTASSIUM 4.4 MEQ/L (3.5-5.1); SODIUM (NA) 131 MEQ/L (136-145)
[2017-01-26 11:19] LABS: ALKALINE PHOSPHATASE 46 U/L (45-117); ALT (GPT) 22 U/L (12-78); TOTAL BILIRUBIN ADULT 0.5 MG/DL (0.2-1.0)
--- NOTE | 2017-01-26 11:48 | RADRPT ---
EXAM DATE/TIME: 01/26/2017 11:33 [place] COMPARISON: ABDOMEN KUB ONLY, November 04, 2016, 10:30. INDICATIONS : Evaluate for pneumonia, pneumothorax or communicable disease. Pre-op for sigmoid resection on February 02. MEDICAL HISTORY : Smoker. SURGICAL HISTORY : None. ENCOUNTER: Initial ACUITY: 1 day PAIN SCORE: 0/10 LOCATION: Bilateral chest FINDINGS: PA and lateral views of the chest demonstrate the lungs to be symmetrically aerated without evidence of mass, infiltrate or effusion. The cardiomediastinal contours are unremarkable. Osseous structure s are intact. CONCLUSION: 1. No acute cardiopulmonary findings identified. Ned Esparza MD on January 26, 2017 at 11:46 Board Certified Radiologist. This report was verified electronically.
--- NOTE | 2017-01-26 21:37 | EKG ---
Date Performed: 01/26/2017 Time Performed: 11:11:31 PTAGE: 51 years EKG: Sinus rhythm NORMAL ECG NO PREVIOUS TRACING DOCTOR: Jairo Vidales Interpretating Date/Time 01/26/2017 21:36:23
== END ==
LOC: CPRE 09:43
PROVIDERS: ATTEND Colon & Rectal Surgery
DX: Z01.810 Encounter for preprocedural cardiovascular examination (principal); Z01.811 Encounter for preprocedural respiratory examination; Z01.812 Encounter for preprocedural laboratory examination; K56.2 Volvulus
CPT/HCPCS: 36415; 71020; 80053; 81001; 85025; 85610; 85730; 93005

== ENCOUNTER 2017-02-02 06:46 | Inpatient (IN) | payer MEDICARE ==
[~2017-02-02] VITALS: Ht 180.3 cm; Wt 87.2 kg
[~2017-02-02 06:46] MED LIST changes: -ALIR1INJ2 SQ; -DEPA500T PO; -HYDR-3516 PO
[2017-02-02] MEDS: DEXT 5%-NACL 0.9% 1000 ML INJ 1,000 ML IV SCH ×2 (07:00→15:00)
[2017-02-02] MEDS ORDERED: FAMOTIDINE 20 MG/2 ML VIAL ONE (07:07)
[2017-02-02] MEDS ORDERED: ACETAMINOPHEN 1000 MG/100 ML 100 ML IV ONE (07:07)
[2017-02-02] MEDS ORDERED: SODIUM CHLORID 0.9% 500 ML IV PRN (07:30)
[2017-02-02] MEDS ORDERED: POVIDONE IODINE 5% (ANTISEPSIS KIT) 4 APPLICATIONS EACH NARE PRN (07:30)
[2017-02-02] MEDS ORDERED: LACTATED RINGER'S 1000 ML IV PRN (07:30)
[2017-02-02] MEDS ORDERED: INSULIN HUMAN REGULAR 1,000 UNITS/10 ML VIAL SQ PRN (07:30)
[2017-02-02] MEDS ORDERED: ceFAZolin 2 GM PREMIX 50 ML IV SCH (07:30)
[2017-02-02] MEDS ORDERED: METRONIDAZOLE 500 MG/100 ML ISONTONIC SOLN IV SCH (07:30)
[2017-02-02] MEDS ORDERED: METOPROLOL TARTRATE 25 MG TAB PO PRN (07:30)
[2017-02-02] MEDS ORDERED: CHLORHEXIDINE GLUCONATE 2 % 1 PACK (2 CLOTHS) TOPICAL PRN (07:30)
--- NOTE | 2017-02-02 09:31 | PD.OP ---
Operative Report Date of Surgery: Feb 02, 2017 Preoperative Diagnosis: (1) Sigmoid volvulus Postoperative Diagnosis: (1) Sigmoid volvulus Procedure: Urologic procedures: Cystoscopy and placement of bilateral ureteral catheters Anesthesia: General Surgeon: Adria Lea Engineering Analyst(s): None Operation and Findings: Indication for procedure: Consult intraoperatively to pass bilateral ureteral catheters to aid in visualization of this patient's ureters during his colorectal procedure. Urologic procedures in detail: Concurrent with the colorectal surgeon Dr. Quintanilla, I proceeded with cystoscopy and placement of bilateral ureteral catheters as follows: Initially cystoscopic evaluation was performed utilizing the rigid cystoscope with a 22 [place] sheath and 30 lens. The urethra was patent without stricture formation in the prostatic urethra was nonobstructing. Further passes of cystoscope within urinary bladder revealed both right and left ureteral orifices to be correct anatomic position effluxing clear yellow urine. I then proceeded with placing a sensor 0.35 wire up the patient's left ureter until a small amount of resistance was met. I then advanced a 6 [place] open-ended ureteral catheter 25 cm cephalad direction. Once the catheter was in place, I withdrew the wire and reintroduce it to a secondary site via the cystoscope. In similar fashion the contralateral side was accomplished. With both catheters in place a wire and cystoscope were withdrawn and a 16 [place] 10 cc Silva catheter was placed. The ureteral catheters were next anchored to Silva via a connector and all catheters placed to gravity drainage. This completes the urologic surgery portion of combined procedures on this patient. Adria Lea MD Feb 02, 2017 09:31
[2017-02-02] MEDS ORDERED: SUGAMMADEX SODIUM 200 MG/2 ML VIAL IV PUSH ONE ×2 (11:31)
[2017-02-02] MEDS ORDERED: DO NOT ADM ANY ANTICOAGULANT DRUGS PRN ×2 (11:48→12:45)
[2017-02-02] MEDS ORDERED: DEXAMETHASONE SOD PHOS 4 MG/ML VIAL IV ONE (12:00)
[2017-02-02] MEDS ORDERED: PHENYLEPHRINE HCL 10 MG/ML VIAL IV ONE (12:00)
[2017-02-02] MEDS ORDERED: ONDANSETRON HCL 4 MG/2 ML VIAL IV PUSH ONE (12:00)
[2017-02-02] MEDS ORDERED: PROPOFOL 200 MG/20 ML AMP IV ONE (12:00)
[2017-02-02] MEDS ORDERED: ROCURONIUM INJ 50 MG/5 ML SYRINGE IV PUSH ONE (12:00)
[2017-02-02] MEDS ORDERED: ePHEDrine/NS 25 MG/5 ML SYR IV ONE (12:00)
[2017-02-02] MEDS ORDERED: PHENYLEPH/NS 1000 MCG/10 ML SYR IV ONE (12:00)
[2017-02-02] MEDS ORDERED: MIDAZOLAM HCL 2 MG/2 ML VIAL IV ONE (12:00)
[2017-02-02] MEDS ORDERED: LIDOCAINE HCL 1% PF 5 ML AMPULE OTHER ONE (12:00)
[2017-02-02] MEDS ORDERED: NORMOSOL R INJ 1,000 ML IV ONE (12:00)
[2017-02-02] MEDS ORDERED: VECURONIUM BROMIDE 20 MG VIAL IV ONE (12:00)
[2017-02-02] MEDS ORDERED: *morphine SULFATE 8 MG/ML PERIprocedure ONLY ONE ×2 (12:18→13:46)
[2017-02-02] MEDS ORDERED: D5-1/2 NS + KCL 20 MEQ INJ 1,000 ML ONE (12:25)
[2017-02-02 12:34] LABS: AUTOMATED NEUTROPHIL # 4.1 TH/MM3 (1.8-7.7); BASOPHIL % 0.1 % (0.0-2.0); EOSINOPHIL % 0.2 % (0.0-4.0); HEMATOCRIT 44.3 % (39.0-51.0); HEMO FLAGS DIFF FINAL; LYMPH % 16.8 % (9.0-44.0); LYMPHOCYTE # 0.9 TH/MM3 (1.0-4.8); MEAN CELL VOLUME 88.8 FL (80.0-100.0); MEAN CORPUSCULAR HEMOGLOBIN 30.4 PG (27.0-34.0); MEAN CORPUSCULAR HGB CONC 34.2 % (32.0-36.0); MONO % 2.2 % (0.0-8.0); NEUT % 80.7 % (16.0-70.0); PLATELET COUNT 137 TH/MM3 (150-450); RED BLOOD COUNT 4.98 MIL/MM3 (4.50-5.90); RED CELL DISTRIBUTION WIDTH 12.9 % (11.6-17.2); WHITE BLOOD COUNT 5.1 TH/MM3 (4.0-11.0)
[2017-02-02 12:53] LABS: BICARBONATE 27.2 MEQ/L (21.0-32.0); POTASSIUM 4.2 MEQ/L (3.5-5.1)
--- NOTE | 2017-02-02 13:36 | MP ---
cc: BENJY WEAVER M.D.PEDRO LIN DATE OF SURGERY 02/03/2017 PREOPERATIVE DIAGNOSIS Chronic sigmoid volvulus. POSTOPERATIVE DIAGNOSIS Chronic sigmoid volvulus. PROCEDURE Robotic sigmoid resection. SURGEON Benjy Weaver MD VEGETABLE SCULLION [place] [facility] General per ET tube ESTIMATED BLOOD LOSS 100 cc OPERATIVE INDICATIONS The patient is a 51-year-old male with a history of chronic sigmoid volvulus. OPERATIVE FINDINGS The patient had an extremely redundant sigmoid colon with thickening of the peritoneum consistent with chronic sigmoid volvulus, as well as dilatation of the distal sigmoid and rectum. The part of the liver that I visualized was normal and the remainder of the colon, although redundant, was not as significant. SPECIMEN REMOVED Approximately 18-20 inches in length OPERATIVE COURSE The patient was brought to the operating room, and placed in the supine position. After induction of general anesthesia, the patient was placed in Osmar stirrups and all bony prominences were carefully padded. The skin of the anterior abdominal wall, as well as the perineal area, was then prepped and draped in the usual sterile fashion. Dr. Lea then came in and performed cystoscopy with placement of bilateral ureteral catheters, please see his operative note for details. A site was then chosen for the camera, being located just to the right and above the umbilicus. A 10/12 trocar was placed at this location under direct vision using a laparoscope. CO2 insufflation was then undertaken and a brief abdominal survey was then performed, with nothing noted that would preclude the robotic approach. He was immediately noted to have a very dilated and redundant sigmoid colon. The remainder of the port sites were then placed as follows. The #1 10/12 port was placed just inside the right anterior superior iliac spine. The #5 assist port was placed just under the right costal margin, equal distance between the number one and the camera port. The #3 port was placed in the left anterior axillary line, and the #2 port was placed just above the umbilical line, in the left midclavicular line. The patient's head was down and slightly to the right and the small bowel was brought up and out of the pelvis. The patient was immediately noted to have adherence between the small bowel mesentery and the sigmoid mesentery. The robot was then docked. The small bowel mesentery was then carefully peeled off the sigmoid mesentery. The sigmoid colon was then retracted down and to the left to the extent possible. The peritoneum was scored and dissection was continued posterior to the vessels until the left ureter was clearly identified and swept away from the specimen. A window was made around the vessels and a white load of the [place] Endostapler was placed across the vessels at this level. This was closed, held for 30 seconds, fired, and removed, with no sign of any active bleeding noted. Dissection continued laterally to the left pelvic sidewall and posteriorly down to the to the level of the mid rectum. At this point, the rectosigmoid was grasped and pulled up and out of the pelvis. A sponge stick was then placed in the rectum. A site was chosen for division of the rectum, just at the proximal rectum just distal to the colorectal junction. The mesentery at this level was divided using the harmonic scalpel and a blue load of the [place] Endostapler was placed across the bowel at this level. This was closed, fired and removed. A second load was necessary to finish the transection of the bowel. A 33 EEA stapler was then advanced through the anus and up to the rectal stump and lay nicely without tension. A small amount of fibrofatty tissue was then cleared. The proximal sigmoid came down nicely to the rectal stump without problems and the robot was undocked. A 10 cm transverse incision was made in the suprapubic area and, using electrocautery, dissection was carried down to the fascia of the anterior abdominal wall which was split the length of the skin incision. The medial fibers of the rectus abdominis muscle were then divided using electrocautery. The posterior fascia/peritoneum was then divided the length of the skin incision as well. A wound protector was then placed, and the proximal stapled end of the bowel was grasped and pulled up and out through the incision. A site was then chosen for division of the bowel, just at the proximal sigmoid where it came down nicely to the pubic tubercle. The mesentery at this level was serially divided and ligated using 0 Vicryl ties and a pursestring stapling device was placed across the bowel at this level. The distal bowel was occluded with a Florina clamp and amputated. It was taken to the back table where it was later opened. At this point, the anvil from the 29 EEA stapler was then placed into the cut end of the bowel and the previously placed pursestring suture was then secured. After gentle digital dilatation of the anus, the 33 EEA stapler was advanced through the anus up to the rectal stump. The spike was advanced just anterior to the corner of the staple line. The anvil was into the spike, being careful that the bowel was not twisted. The stapler was then closed, held for 30 seconds, fired, and removed, thus creating an enteroenterotomy. The anastomosis appeared pink and healthy circumferentially and both anastomotic rings were noted to be complete. A small amount of warm normal saline was placed into the pelvis. The proximal bowel was occluded with digital pressure. Air was insufflated into the rectum until gentle tension was noted on the anastomosis, with no sign of any leakage. The air was desufflated to the extent possible and the saline was suctioned out of the pelvis. The anastomosis lay in a nice position with no undue tension. The posterior fascia at the suprapubic incision was then closed in a running fashion using #1 PDS and the anterior fascia in the suprapubic incision was closed in the same fashion. The wound was covered with a sponge and an OpSite and CO2 insufflation was resumed. The laparascope was brought onto the field and a small amount of Ayla was dusted in the pelvis. The 10-12 trocar sites were then closed using the crossbow device and 0 Vicryl suture. These sutures were placed, but not secured until the CO2 was desufflated. The CO2 was then desufflated and the remainder of the ports were removed. The 0 Vicryl sutures were then secured. All wounds were copiously irrigated with warm normal saline. The skin of the suprapubic incision was closed in a running fashion using #1 PDS non-looped and the skin at the trocar sites were closed in an interrupted subcuticular fashion using 3-0 Vicryl. Sterile dressings were then applied. The right ureteral stent was removed. All sponge, needle and instrument counts were correct, and the patient was returned to the post anesthesia care unit in stable condition. MD ZACHERY Holden/ELAINE Ernst: 02/02/2017/11:40 AM /1:12 PM VINNY
[2017-02-02] MEDS ORDERED: SODIUM CHLORIDE 0.9% FLUSH 5 ML FLUSH IVF PRN (14:00)
[2017-02-02] MEDS ORDERED: diphenhydrAMINE HCL 50 MG/ML VIAL IV PRN (14:00)
[2017-02-02] MEDS ORDERED: ONDANSETRON HCL 4 MG/2 ML VIAL IV PRN (14:00)
[2017-02-02] MEDS ORDERED: ENALAPRILAT 1.25 MG/ML VIAL IV PRN (14:00)
[2017-02-02] MEDS ORDERED: ENALAPRILAT 2.5 MG/2 ML VIAL IV PRN (14:00)
[2017-02-02] MEDS ORDERED: NALOXONE HCL 0.4 MG/ML AMP IV PRN (14:00)
[2017-02-02] MEDS: LOW DOSE INSULIN NOVOLOG SUPPLEMENTAL SCALE SQ SCH ×2 (14:00→22:07)
[2017-02-02] MEDS ORDERED: GLUCAGON 1 MG/ML VIAL OTHER PRN (14:00)
[2017-02-02] MEDS ORDERED: DEXTROSE 50% IN WATER 50 ML VIAL(D50) IV PUSH PRN (14:00)
[2017-02-02] MEDS: SODIUM CHLORIDE 0.9% FLUSH 5 ML FLUSH IVF SCH ×2 (14:00→21:00)
[2017-02-02] MEDS ORDERED: PILL SPLITTER OTHER PRN (15:00)
[2017-02-02] MEDS ORDERED: BENZOCAINE 6 MG/MENTHOL 10 MG LOZENGE BUCCAL PRN (15:00)
[2017-02-02] MEDS ORDERED: POTASSIUM CHLOR 20 MEQ PREMIX 100 ML IV PRN ×2 (15:00→16:00)
[2017-02-02 15:45] VITALS: BP 106/69; PULSE 88; RESP 18; TEMP 97.5; O2SAT 99
[2017-02-02] MEDS ORDERED: Post-op Orders (for Pharmacy) MISC XX ONE (16:00)
[2017-02-02] MEDS ORDERED: ACETAMINOPHEN 325 MG TAB PO PRN (16:00)
[2017-02-02] MEDS: metroNIDAZOLE 500 MG INJ 100 ML IV SCH (16:24)
[2017-02-02] MEDS: D5-NS + KCL 20 MEQ INJ 1,000 ML IV SCH ×2 (16:29→18:21)
[2017-02-02] MEDS ORDERED: ACETAMINOPHEN/HYDROcodone 325 MG/5 MG TAB PO PRN ×2 (17:00)
[2017-02-02] MEDS ORDERED: MORPHINE SULFATE 2 MG/ML INJ IM PRN (17:00)
[2017-02-02] MEDS: KETOROLAC TROMETHAMINE 30 MG/ML (IVP) VIAL IVP SCH (17:22)
[2017-02-02 20:00] VITALS: BP 101/60; PULSE 85; RESP 18; TEMP 97.5; O2SAT 100
[2017-02-02] MEDS: DIVALPROEX SODIUM E.R. 500 MG TAB PO SCH (21:45)
[2017-02-02] MEDS: risperiDONE 1 MG TAB PO SCH (21:45)
[2017-02-02] MEDS: PARoxetine HCL 20 MG TAB PO SCH (21:45)
[2017-02-02] MEDS: BENZTROPINE MESYLATE 1 MG TAB PO SCH (21:46)
[2017-02-02] MEDS: HEPARIN SODIUM - SQ 10,000 UNITS/ML VIAL SQ SCH (21:58)
[2017-02-03] VITALS (23 sets, daily range): BP systolic 96–158; BP diastolic 52–89; PULSE 74–107; RESP 16–18; TEMP 97.8–100.4; O2SAT 93–100
[2017-02-03] MEDS: metroNIDAZOLE 500 MG INJ 100 ML IV SCH ×2 (00:06→07:56)
[2017-02-03] MEDS: KETOROLAC TROMETHAMINE 30 MG/ML (IVP) VIAL IVP SCH ×5 (00:07→23:55)
[2017-02-03] MEDS: D5-NS + KCL 20 MEQ INJ 1,000 ML IV SCH ×2 (01:01→07:41)
[2017-02-03] MEDS: LOW DOSE INSULIN NOVOLOG SUPPLEMENTAL SCALE SQ SCH ×4 (03:41→21:18)
[2017-02-03] MEDS: LEVOTHYROXINE SODIUM 25 MCG TAB PO SCH (06:17)
[2017-02-03] MEDS: HEPARIN SODIUM - SQ 10,000 UNITS/ML VIAL SQ SCH ×2 (06:17→17:49)
[2017-02-03] MEDS: LEVOTHYROXINE SODIUM 112 MCG TAB PO SCH (06:17)
[2017-02-03 06:49] LABS: AUTOMATED NEUTROPHIL # 3.9 TH/MM3 (1.8-7.7); BASOPHIL % 0.2 % (0.0-2.0); EOSINOPHIL % 0.4 % (0.0-4.0); HEMATOCRIT 35.4 % (39.0-51.0); HEMO FLAGS DIFF FINAL; LYMPH % 22.1 % (9.0-44.0); LYMPHOCYTE # 1.4 TH/MM3 (1.0-4.8); MEAN CELL VOLUME 89.6 FL (80.0-100.0); MEAN CORPUSCULAR HEMOGLOBIN 29.6 PG (27.0-34.0); MEAN CORPUSCULAR HGB CONC 33.1 % (32.0-36.0); MONO % 17.4 % (0.0-8.0); NEUT % 59.9 % (16.0-70.0); PLATELET COUNT 133 TH/MM3 (150-450); RED BLOOD COUNT 3.95 MIL/MM3 (4.50-5.90); RED CELL DISTRIBUTION WIDTH 12.9 % (11.6-17.2); WHITE BLOOD COUNT 6.5 TH/MM3 (4.0-11.0)
[2017-02-03 07:09] LABS: BICARBONATE 27.8 MEQ/L (21.0-32.0); POTASSIUM 4.5 MEQ/L (3.5-5.1)
[2017-02-03] MEDS: SODIUM CHLORIDE 0.9% FLUSH 5 ML FLUSH IVF SCH ×2 (07:56→21:00)
[2017-02-03] MEDS: PANTOPRAZOLE SODIUM 40 MG VIAL IVP SCH (07:57)
[2017-02-03] MEDS: LISINOPRIL 10 MG TAB PO SCH ×2 (07:57→08:01)
[2017-02-03] MEDS: BENZTROPINE MESYLATE 1 MG TAB PO SCH ×2 (07:57→21:11)
[2017-02-03] MEDS: risperiDONE 1 MG TAB PO SCH ×2 (07:58→21:00)
[2017-02-03] MEDS: DIVALPROEX SODIUM E.R. 250 MG TAB PO SCH (07:59)
--- NOTE | 2017-02-03 11:38 | HHI.PR ---
Subjective Remarks POD#1 s/p robotic sigmoid resection comfortable Objective Vital Signs Date Time Temp Pulse Resp B/P (MAP) Pulse Ox O2 Delivery O2 Flow Rate FiO2 02/03/17 10:00 74 02/03/17 09:00 74 02/03/17 08:01 98.1 78 18 104/56 (72) 100 02/03/17 08:00 76 02/03/17 07:01 75 02/03/17 04:30 98.0 75 16 96/52 (67) 98 02/03/17 00:14 100 Nasal Cannula 2.00 02/03/17 00:00 97.8 76 18 100/58 (72) 100 02/02/17 20:00 97.5 85 18 101/60 (74) 100 02/02/17 15:45 97.5 88 18 106/69 (81) 99 02/02/17 14:30 90 12 110/62 (78) 99 Nasal Cannula 2 02/02/17 14:00 91 12 120/71 (87) 100 Nasal Cannula 2 02/02/17 13:30 84 12 106/60 (75) 100 Nasal Cannula 2 02/02/17 13:00 83 12 100/62 (75) 100 Nasal Cannula 2 02/02/17 12:45 83 16 93/61 (72) 100 Nasal Cannula 2 02/02/17 12:30 78 12 94/54 (67) 99 Nasal Cannula 2 02/02/17 12:15 83 16 106/63 (77) 100 Nasal Cannula 2 02/02/17 12:00 81 12 114/65 (81) 100 Nasal Cannula 4 02/02/17 11:52 97.7 89 24 130/77 (94) 98 Nasal Cannula 4 I/O 02/02/17 02/02/17 02/02/17 02/03/17 02/03/17 02/03/17 06:59 14:59 22:59 06:59 14:59 22:59 Intake Total 1200 ml 1282 ml 1520 ml 198 ml Output Total 560 ml 350 ml 365 ml Balance 640 ml 932 ml 1155 ml 198 ml Intake Oral 0 ml 420 ml IV Total 1282 ml 1100 ml 198 ml Other 1200 ml Output Urine Total 550 ml 350 ml 365 ml Estimated Blood Loss 10 ml Result Diagram: 02/03/1761402/03/17614 Objective Remarks Abdomen soft, non-distended, tender Dressings c/d/i Assessment and Plan Assessment and Plan Decrease IVF Advance diet Mobilize Janelle Quintanilla MD Feb 03, 2017 11:38
[2017-02-03] MEDS: DEXT 5%-NACL 0.9% 1000 ML INJ 1,000 ML IV SCH ×2 (13:05→13:06)
[2017-02-03] MEDS: PARoxetine HCL 20 MG TAB PO SCH (21:11)
[2017-02-03] MEDS: DIVALPROEX SODIUM E.R. 500 MG TAB PO SCH (21:17)
[2017-02-04] VITALS (14 sets, daily range): BP systolic 115–143; BP diastolic 56–80; PULSE 69–98; RESP 16–18; TEMP 95.9–98.4; O2SAT 95–100
[2017-02-04] MEDS: DEXT 5%-NACL 0.9% 1000 ML INJ 1,000 ML IV SCH
[2017-02-04] MEDS: LOW DOSE INSULIN NOVOLOG SUPPLEMENTAL SCALE SQ SCH ×3 (02:00→20:36)
[2017-02-04] MEDS: LEVOTHYROXINE SODIUM 112 MCG TAB PO SCH (05:37)
[2017-02-04] MEDS: KETOROLAC TROMETHAMINE 30 MG/ML (IVP) VIAL IVP SCH ×3 (05:37→20:36)
[2017-02-04] MEDS: LEVOTHYROXINE SODIUM 25 MCG TAB PO SCH (05:37)
[2017-02-04] MEDS: HEPARIN SODIUM - SQ 10,000 UNITS/ML VIAL SQ SCH ×2 (05:49→19:36)
[2017-02-04 06:06] LABS: AUTOMATED NEUTROPHIL # 3.1 TH/MM3 (1.8-7.7); BASOPHIL % 0.1 % (0.0-2.0); EOSINOPHIL # 0.1 TH/MM3 (0-0.4); EOSINOPHIL % 1.9 % (0.0-4.0); HEMO FLAGS DIFF FINAL; LYMPH % 22.2 % (9.0-44.0); LYMPHOCYTE # 1.1 TH/MM3 (1.0-4.8); MEAN CELL VOLUME 89.6 FL (80.0-100.0); MEAN CORPUSCULAR HEMOGLOBIN 30.6 PG (27.0-34.0); MEAN CORPUSCULAR HGB CONC 34.1 % (32.0-36.0); MONO % 13.3 % (0.0-8.0); NEUT % 62.5 % (16.0-70.0); PLATELET COUNT 117 TH/MM3 (150-450); RED BLOOD COUNT 3.46 MIL/MM3 (4.50-5.90); RED CELL DISTRIBUTION WIDTH 12.7 % (11.6-17.2); WHITE BLOOD COUNT 4.9 TH/MM3 (4.0-11.0)
[2017-02-04 06:16] LABS: BICARBONATE 24.8 MEQ/L (21.0-32.0)
[2017-02-04] MEDS: PANTOPRAZOLE SODIUM 40 MG VIAL IVP SCH (09:00)
[2017-02-04] MEDS: SODIUM CHLORIDE 0.9% FLUSH 5 ML FLUSH IVF SCH ×2 (09:00→20:36)
[2017-02-04] MEDS: DIVALPROEX SODIUM E.R. 250 MG TAB PO SCH (10:31)
[2017-02-04] MEDS: BENZTROPINE MESYLATE 1 MG TAB PO SCH ×2 (10:32→20:37)
[2017-02-04] MEDS: LISINOPRIL 10 MG TAB PO SCH (10:32)
[2017-02-04] MEDS: risperiDONE 1 MG TAB PO SCH ×2 (10:36→20:37)
--- NOTE | 2017-02-04 13:01 | HHI.PR ---
Subjective Remarks POD#2 s/p robotic sigmoid resection comfortable Objective Vital Signs Date Time Temp Pulse Resp B/P (MAP) Pulse Ox O2 Delivery O2 Flow Rate FiO2 02/04/17 08:07 98 21 02/04/17 06:00 75 02/04/17 05:00 80 02/04/17 04:00 69 02/04/17 03:10 98.4 90 18 137/72 (93) 97 02/04/17 03:00 86 02/04/17 02:00 88 02/04/17 01:00 92 02/04/17 00:00 96 02/03/17 23:40 100.4 102 18 158/79 (105) 93 02/03/17 23:00 95 02/03/17 22:00 94 02/03/17 21:00 90 02/03/17 20:00 90 02/03/17 20:00 98.0 97 18 145/72 (96) 100 02/03/17 19:00 107 02/03/17 18:01 100 02/03/17 17:00 88 02/03/17 16:00 86 02/03/17 15:15 98.5 89 18 134/89 (104) 100 02/03/17 15:00 88 02/03/17 14:00 92 I/O 02/03/17 02/03/17 02/03/17 02/04/17 02/04/17 02/04/17 07:00 15:00 23:00 07:00 15:00 23:00 Intake Total 1370 ml 782 ml 1200 ml 865 ml Output Total 365 ml 525 ml 800 ml Balance 1005 ml 782 ml 675 ml 65 ml Intake Oral 420 ml 1200 ml 240 ml IV Total 950 ml 782 ml 625 ml Output Urine Total 365 ml 525 ml 800 ml # Bowel Movements 0 0 Result Diagram: 02/04/1751702/04/17517 Objective Remarks Abdomen soft, mild distension, tender wounds clean Assessment and Plan Assessment and Plan HL IV Advance diet Mobilize Transfer to Regular Bed Janelle Quintanilla MD Feb 04, 2017 13:01
[2017-02-04] MEDS: DIVALPROEX SODIUM E.R. 500 MG TAB PO SCH (20:37)
[2017-02-04] MEDS: PARoxetine HCL 20 MG TAB PO SCH (20:43)
[2017-02-05] MEDS: LOW DOSE INSULIN NOVOLOG SUPPLEMENTAL SCALE SQ SCH ×3 (02:04→14:11)
[2017-02-05] MEDS: KETOROLAC TROMETHAMINE 30 MG/ML (IVP) VIAL IVP SCH ×2 (05:00→10:54)
[2017-02-05] MEDS: HEPARIN SODIUM - SQ 10,000 UNITS/ML VIAL SQ SCH (05:54)
[2017-02-05] MEDS: LEVOTHYROXINE SODIUM 25 MCG TAB PO SCH (05:54)
[2017-02-05] MEDS: LEVOTHYROXINE SODIUM 112 MCG TAB PO SCH (05:54)
[2017-02-05 08:00] VITALS: BP 142/85; PULSE 84; RESP 14; TEMP 98; O2SAT 98
[2017-02-05] MEDS: BENZTROPINE MESYLATE 1 MG TAB PO SCH (08:16)
[2017-02-05] MEDS: DIVALPROEX SODIUM E.R. 250 MG TAB PO SCH (08:17)
[2017-02-05] MEDS: LISINOPRIL 10 MG TAB PO SCH (08:17)
[2017-02-05] MEDS: risperiDONE 1 MG TAB PO SCH (08:17)
[2017-02-05] MEDS: SODIUM CHLORIDE 0.9% FLUSH 5 ML FLUSH IVF SCH (08:18)
[2017-02-05] MEDS: PANTOPRAZOLE SODIUM 40 MG VIAL IVP SCH (08:18)
[2017-02-05 08:34] LABS: AUTOMATED NEUTROPHIL # 3.6 TH/MM3 (1.8-7.7); BASOPHIL % 0.3 % (0.0-2.0); EOSINOPHIL # 0.1 TH/MM3 (0-0.4); EOSINOPHIL % 2.5 % (0.0-4.0); HEMATOCRIT 33.7 % (39.0-51.0); HEMO FLAGS DIFF FINAL; LYMPH % 21.8 % (9.0-44.0); LYMPHOCYTE # 1.3 TH/MM3 (1.0-4.8); MEAN CELL VOLUME 88.3 FL (80.0-100.0); MEAN CORPUSCULAR HEMOGLOBIN 30.2 PG (27.0-34.0); MEAN CORPUSCULAR HGB CONC 34.2 % (32.0-36.0); MONO % 12.8 % (0.0-8.0); NEUT % 62.6 % (16.0-70.0); PLATELET COUNT 128 TH/MM3 (150-450); RED BLOOD COUNT 3.82 MIL/MM3 (4.50-5.90); WHITE BLOOD COUNT 5.8 TH/MM3 (4.0-11.0)
[2017-02-05 08:54] LABS: BICARBONATE 27.2 MEQ/L (21.0-32.0)
[2017-02-05 12:00] VITALS: BP 144/77; PULSE 86; RESP 15; TEMP 96.2; O2SAT 97
--- NOTE | 2017-02-05 14:50 | HHI.PR ---
Subjective Remarks POD#3 s/p robotic sigmoid resection comfortable Objective Vital Signs Date Time Temp Pulse Resp B/P (MAP) Pulse Ox O2 Delivery O2 Flow Rate FiO2 02/05/17 12:00 96.2 86 15 144/77 (99) 97 02/05/17 08:00 98.0 84 14 142/85 (104) 98 02/04/17 23:03 95.9 94 18 143/75 (97) 95 02/04/17 19:45 97.8 98 16 143/80 (101) 97 02/04/17 16:30 98.0 88 16 136/72 (93) 99 I/O 02/04/17 02/04/17 02/04/17 02/05/17 02/05/17 02/05/17 07:00 15:00 23:00 07:00 15:00 23:00 Intake Total 865 ml 1395 ml Output Total 800 ml 1150 ml 1500 ml Balance 65 ml 245 ml -1500 ml Intake Oral 240 ml 740 ml IV Total 625 ml 655 ml Output Urine Total 800 ml 1150 ml 1500 ml # Bowel Movements 0 0 Result Diagram: 02/05/17 0803 02/05/17 0803 Objective Remarks Abdomen soft, mild distension, tender wounds clean Medications and IVs Assessment and Plan Assessment and Plan Home today Resume home laxative program Followup 3weeks Janelle Quintanilla MD Feb 05, 2017 14:50
[2017-02-05] MEDS ORDERED: HYDR-3516 PO (14:51)
[2017-02-05 16:00] VITALS: BP 153/82; PULSE 97; RESP 14; TEMP 97; O2SAT 100
== END 2017-02-05 16:48 | disposition home or self-care (01) | DRG 331 ==
LOC: HSDI 06:46 → HCPC 15:04 → N07A 02-04 22:36
PROVIDERS: ADMIT Colon & Rectal Surgery; ATTEND Colon & Rectal Surgery
PROC: 0T788DZ Dilation of Bilateral Ureters with Intraluminal Device, Via Natural or Artificial Opening Endoscopic (ICD-10-PCS; 2017-02-02)
PROC: 0DTN4ZZ Resection of Sigmoid Colon, Percutaneous Endoscopic Approach (ICD-10-PCS; principal; 2017-02-03)
PROC: 8E0W4CZ Robotic Assisted Procedure of Trunk Region, Percutaneous Endoscopic Approach (ICD-10-PCS; 2017-02-03)
DX: K56.2 Volvulus (principal)
CPT/HCPCS: 80048; 82948; 85025; 86850; 86900; 86901; 88307; 94150; C1769; C9113; J0131; J0690; J1100; J1644; J1815; J1885; J2250; J2270; J2370; J2405; J3010; J3480; J7042; J7120